=== PATIENT | male | born 1960 | race Caucasian/White ===

== ENCOUNTER → 2022-05-06 15:55 | Outpatient (BNVA) | payer MEDICAID, SELFPAY | PROVIDERS: Visit Provider Physician Assistant | DX: M47.816 Spondylosis without myelopathy or radiculopathy, lumbar region (principal) | CPT/HCPCS: 72110 ==

== ENCOUNTER 2022-05-14 09:05 | Outpatient (CLI) | payer MEDICAID, SELFPAY ==
--- NOTE | 2022-05-14 09:39 | CT_ITS ---
WS: [id number] LDCT LUNG CANCER SCREENING TECHNIQUE: Noncontrast CT of the chest with coronal and sagittal reformatted images. CLINICAL INFORMATION: NICOTINE DEPENDENCE,CIGARETTES COMPARISON: None. DLP: 89.77 mGy.cm DIvol: Mean CTDIvol: 1.60 (mGy) All CT scans at [facility] use at least one of these dose optimization techniques: automat ed exposure control; mA and/or kV adjustment per patient size (includes targeted exams where dose is matched to clinical indication); or iterative reconstruction. FINDINGS: Normal caliber thoracic aorta. Aortic calcification. Slightly ectatic ascending thoracic aorta measur ing 3.5 CM. Mild aortic calcification. Coronary calcification. No mediastinal or hilar lymphadenopath y. No axillary lymphadenopathy. Adrenal glands are normal. Splenic artery calcification. Gallbladder is contracted. Vague low-attenuation lesion in the dome of the liver. This can be further evaluated with contrast-enhanced CT abdomen pelvis liver phase protocol. This is indeterminate. Hypertrophic changes thoracic spine with endplate Schmorl's nodes. Well-circumscribed subpleural nodu le LEFT lower lobe measuring 8 mm. Recommend 6 month follow-up. Tiny subpleural opacity in the lingula. Noncalcified nodule in the RIGHT middle lobe measuring 5 mm. Noncalcified nodule RIGHT lower lobe along the fissure measuring 3 mm. Several additional tiny RIGHT lower lobe pulmonary and subpleural nodules. CT/CT lung screening [id number] IMPRESSION: Vague area of low-attenuation change in the RIGHT hepatic lobe near the liver dome measuring 3 cm. Recommend further evaluation with contrast-enha nced CT abdomen pelvis with liver protocol. LUNG-RADS: 3-Probably Benign FOLLOW UP: 6 Month LDCT
--- NOTE | 2022-05-14 09:40 | MR_ITS ---
WS: [id number] MRI LUMBAR SPINE NONCONTRAST TECHNIQUE: Sagittal T1, T2 and STIR imaging. Axial T1 and T2 imaging. CLINICAL INFORMATION: LUMBAR BACK PAIN W/RADICULOPATHY COMPARISON: None. FINDINGS: Mild lumbar curve. No acute compression. No high-grade central canal stenosis. Disc space narrowing w orse L5-S1. L1-L2: Moderate facet arthropathy. Spinal canal and foramen are patent. L2-L3: Shallow RIGHT pericentral protrusion. Moderate central canal stenosis. Impingement on the brianna ersing RIGHT greater than LEFT L3 nerve roots. Moderate facet arthropathy ligamentum flavum hypertrop hy. Mild RIGHT and no significant LEFT foraminal narrowing. L3-L4: Mild disc bulging and osteophytic ridging. Slight impingement traversing L4 nerve roots bilate rally. Mild central canal stenosis. Mild LEFT greater than RIGHT foraminal narrowing. L4-L5: Mild disc bulging with slight effacement of the ventral thecal sac. Moderate facet arthropathy . Mild LEFT and no significant RIGHT foraminal narrowing. Moderate facet arthropathy. L5-S1: Mild disc bulging with osteophytic ridging. Shallow central protrusion. Impingement traversing RIGHT S1 nerve root. Moderate facet arthropathy. Severe RIGHT and moderate LEFT bony foraminal narro wing. Moderate facet arthropathy. 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 Visualized pelvic bony structures: Normal. Paravertebral soft tissues: Normal. MR/MR lumbar spine wo con* [id number] IMPRESSION: 1. Mild lumbar curve. No acute compression. 2. Moderate central canal stenosis L2-L3 with impingement RIGHT subarticular r ecess and traversing RIGHT L3 nerve root. Mild RIGHT foraminal narrowing at thi s level with contact of the exiting RIGHT L2 nerve root. 3. Mild central canal stenosis L3-L4 with slight impingement traversing L4 ner ve roots bilaterally. Mild central canal stenosis. Small foraminal protrusions at this level with mild LEFT greater than RIGHT foraminal narrowing. 4. Narrowing of the subarticular recess bilaterally L4-L5 with mild annular bu lging. 5. Moderate to severe RIGHT and moderate LEFT L5-S1 foraminal narrowing. 6. Shallow RIGHT pericentral disc bulging L5-S1 impinges the traversing RIGHT S1 nerve root.
--- NOTE | 2022-05-14 10:22 | XR_ITS ---
WS: [id number] EXAMINATION: XR shoulder RT min 2V* [id number] REASON FOR EXAM: right shoulder pain COMPARISON: None available. ORDER DATE: 05/14/2022 10:23 AM TECHNIQUE: 3 views of the right shoulder were obtained. X-RAY FINDINGS: No fractures or dislocations. Normal motion of the shoulder with internal/external rotation. There is downsloping acromion on with a small distal acromial spur. Acromioclavicular joint demonstrates narrowing and mild degenerative change. Limited visualization of the adjacent hemithorax is unremarkable. XR/XR shoulder RT min 2V* [id number] IMPRESSION: Small distal acromial spur and mild AC joint changes of osteoarthritis.
== END 2022-05-14 09:06 | disposition home or self-care (01) ==
PROVIDERS: PCP Family Medicine; Visit Provider Family Medicine
DX: M19.011 Primary osteoarthritis, right shoulder (principal); M48.061 Spinal stenosis, lumbar region without neurogenic claudication; M51.27 Other intervertebral disc displacement, lumbosacral region; M48.07 Spinal stenosis, lumbosacral region; M51.26 Other intervertebral disc displacement, lumbar region
CPT/HCPCS: 71271; 72148; 73030

== ENCOUNTER 2022-05-21 16:10 | Emergency (ER) | payer MEDICAID, SELFPAY ==
[2022-05-21 16:36] VITALS: BP 166/85; PULSE 78; RESP 19; TEMP 37; O2SAT 97; BMI 25.7
--- NOTE | 2022-05-21 17:15 | W.ED.BACK ---
HPI - Back Pain/Injury General: Chief Complaint: Back Pain/Injury Stated Complaint: BACK PAIN Time Seen by Provider: 05/21/22 17:14 History of Present Illness: 62-year-old male patient comes in today for complaints of exacerbation of chronic low back pain. Patient has been seen at primary care and evaluated at pain speciality clinic to establish care. Patient is waiting to see with At the pain clinic for management plan. Patient has some bulging disks in the low back has been noted on MRI. Patient appears nontoxic. Patient reports chronic numbness in the lower extremities. Patient is also been seen in the ER for impingement syndrome of the right shoulder. Associated symptoms: Deny fever(s) Review of Systems Const: Denies: fever(s) Card: Denies: chest pain Resp: Denies: dyspnea Musc: Reports: back pain Neuro: Reports: numbness in extremities PFSH ED PFSH: Social History Smoking and tobacco status: current every day smoker Alcohol intake: never Physical Exam Const: COMMON NORMALS: alert HENMT: COMMON NORMALS: normocephalic HEAD & SCALP: normocephalic Neck/C-Spine: COMMON NORMALS: full ROM Resp: COMMON NORMALS: normal respiratory effort and clear to auscultation bilaterally AUSCULTATION: clear to auscultation bilaterally Cardio: COMMON NORMALS: regular rate and regular rhythm RATE: regular rate RHYTHM: regular rhythm Back/Pelvis: LUMBAR SPINE/LOWER BACK: Yes paraspinal muscle tenderness Lumbar paraspinal muscle tenderness: right Extremity: COMMON NORMALS: normal to inspection and no pedal edema Neuro: SENSORIUM/ORIENTATION: Yes alert Skin: COMMON NORMALS: turgor normal GENERAL SKIN EXAM: turgor normal Course Vital Signs: Vital signs: Vital Signs Temperature 98.6 F 05/21/22 16:36 Pulse Rate 78 05/21/22 16:36 Respiratory Rate 19 H 05/21/22 16:36 Blood Pressure 166/85 05/21/22 16:36 Pulse Oximetry 97 05/21/22 16:36 Oxygen Delivery Me thod 05/21/22 16:36 MDM - Back Pain/Injury Medical Decision Making 62-year-old male patient comes in today for complaints of low back pain. Patient reports that he has had no injury but has been working on remodeling a house. Patient states that he has been seen at the pain management clinic and started on medications but has run out of his medicine. Patient is to be followed up with on the with the physician for management plan. Patient appears nontoxic. Patient appears no acute distress. Differential diagnosis includes but not limited to intervertebral disc disease, facet arthritis, out of medication. Discussed with patient that the emergency department cannot manage chronic pain. 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 Patient reported understanding agreed to plan. Discharge Plan Discharge Patient Disposition: Home Clinical Impression: DDD (degenerative disc disease), lumbar Condition: Stable Prescriptions: New hydrocodone-acetaminophen 5-325 mg tablet 1 tab PO Q8H PRN (Reason: pain (scale score 7-10)) Qty: 10 0RF No Action atorvastatin 10 mg tablet 10 mg PO DAILY lisinopril 10 mg tablet 10 mg PO DAILY naproxen [EC-Naproxen] 500 mg tablet,delayed release (DR/EC) 500 mg PO BID tramadol 50 mg tablet 50 mg PO Q6H PRN varenicline 1 mg tablet 1 mg PO BID prednisone 20 mg tablet 20 mg PO DAILY Qty: 15 0RF Rx Instructions: 60mg x 3 days 40mg x 2 days 20mg x 2 days oxycodone-acetaminophen [Percocet] 5-325 mg tablet 1 tab PO Q4H PRN (Reason: pain) 7 Days Qty: 20 0RF Discharge Orders: Discharge ED (Routine); Ordered 05/21/22 Ordered By: Rafita Alcantara Referrals: Remberto Ford MD [Primary Care Provider] - Discharge Diet: Usual diet Discharge Activity: Increase activity as tolerated Patient Instructions: Opioid Safety, Pain Management Activity Restrictions/Additional Instructions: You should use Tylenol and ibuprofen to control pain. Gentle stretching and range of motion exercises. Ice and heat for further pain relief. Use hydrocodone for severe pain. Drink plenty of water with medication. Follow-up with primary care for refills on medication. Return to ER for new concerns. Coding Level of Care Code ED Manager Leadership Development for Will Lopez
== END 2022-05-21 17:41 | disposition home or self-care (01) ==
PROVIDERS: Emergency Provider Nurse Practitioner Family; PCP Family Medicine
DX: M51.36 Other intervertebral disc degeneration, lumbar region (principal); F17.210 Nicotine dependence, cigarettes, uncomplicated
CPT/HCPCS: 99283

== ENCOUNTER 2022-06-03 08:29 | Outpatient (CLI) | payer MEDICAID, SELFPAY ==
--- NOTE | 2022-06-03 08:47 | CT_ITS ---
WS: [id number] CT ABDOMEN AND PELVIS WITH CONTRAST HISTORY: LIVER MASS TECHNIQUE: Imaging performed of the abdomen and pelvis with IV contrast. Multi phase imaging of the abdomen. Coronal and sagittal reformats are submitted. All CT scans at [facility] use at leas t one of these dose optimization techniques: automated exposure control; mA and/or kV adjustment per patient size (includes targeted exams where dose is matched to clinical indication); or iterative rec onstruction. IV CONTRAST: Omnipaque 350; 100 mL IV. Oral contrast: No DLP: 1233.43 mGy.cm COMPARISON: Lung screening CT 05/14/2022 Lower thorax: Well-circumscribed subpleural 8mm nodule LEFT lung base. Heart is normal size. Small hi atal hernia. Liver/biliary system: Normal size liver. There are 2 low-attenuation masses in the liver. The largest measures 1.6 x 1.7 cm towards the RIGHT diaphragmatic surface of the liver. On the arterial phase th ere is slight peripheral pooling and puddling. This does not completely fill-in on the delayed imagin g. There is an additional small low-attenuation nodule in the LEFT lobe with a similar peripheral pud dling on the early arterial images measuring 1.3 maximum diameter. No additional abnormalities. Gallbladder: Normal. No gallstones or wall thickening. No pericholecystic fluid. Pancreas: Normal size pancreas and pancreatic duct. No adjacent inflammation. Spleen: Normal size spleen. No mass or infarct. Adrenal glands: Normal. Right kidney: Normal. Left kidney: Normal. Aorta: Mild atherosclerosis with no aneurysm. 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 Lymphadenopathy: None. Free fluid: None. GI tract: Minimally distended stomach. Normal contrast was given for this exam. No small bowel obstru ction. Normal appendix. Moderate diverticular disease in the distal colon with no acute diverticuliti s. Abdominal wall: Fat containing umbilical hernia. Pelvis: No free fluid or adenopathy within the pelvis. Mild prostate enlargement. Bones: LEFT SI joint sclerosis. Degenerative disc disease at L5-S1. CT/CT abdomen pelvis w con* [id number] IMPRESSION: 1. Hepatic low-attenuation masses as described above x2. Although not typical these are most likely benign hemangiomas. Additional evaluation is recommended. Recommend multiphase abdomen CT follow-up in 3 months or follow-up MRI with an d without contrast of the liver. 2. 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 3. Subpleural LEFT lower lobe 8 mm pulmonary nodule. Refer to lung screening r eport of 05/14/2022. 4. Diverticulosis without acute diverticulitis.
[2022-06-03] MEDS: iohexol 350 mg/mL 500 mL Btl (per mL) IV (08:49)
== END 2022-06-03 08:30 | disposition home or self-care (01) ==
LOC: RAD 08:35
PROVIDERS: PCP Family Medicine; Visit Provider Family Medicine
DX: K76.89 Other specified diseases of liver (principal); R91.1 Solitary pulmonary nodule; K57.30 Diverticulosis of large intestine without perforation or abscess without bleeding; I72.2 Aneurysm of renal artery
CPT/HCPCS: 74177; Q9967

== ENCOUNTER 2022-06-11 18:17 | Emergency (ER) | payer OTHER, MEDICAID, SELFPAY ==
[2022-06-11 18:21] VITALS: BP 199/99; PULSE 78; RESP 14; TEMP 36.6; O2SAT 98
--- NOTE | 2022-06-11 19:12 | W.ED.BACK ---
HPI - Back Pain/Injury General: Chief Complaint: Back Pain/Injury Stated Complaint: pain, back/ shoulder injury Time Seen by Provider: 06/11/22 18:28 Source: patient Mode of arrival: ambulatory Limitations: no limitations History of Present Illness: Patient presents to the emergency department today for evaluation treatment of continued low back and right shoulder pain. Patient's chart review indicates a known history of degenerative disc disease and right shoulder impingement for which he has had appointments with orthopedics. Most recently, patient had a discussion with orthopedics regarding an MRI of his back and they discussed surgical options or pain management. Patient indicated he wanted to go to pain management. Patient has an appointment with pain management in 5 days but, indicates his primary care doctor as well as orthopedic physician, only gave him a short course of pain medication during this time. Patient reports he is currently out of his pain medication and, indicates that he does not think it is particularly strong enough. Incidentally, patient reports he is remodeling his home. He states he has been using a patch sander above his head for the last 2 days and, notes significant worsening of pain in his right shoulder. He denies any acute injuries or falls. Review of Systems General: Reports: 10 or more systems reviewed and unremarkable except in HPI and below PFSH ED PFSH: Social History Smoking and tobacco status: current every day smoker Alcohol intake: never Substance/Drug Use: never Physical Exam Const: COMMON NORMALS: no acute distress, patient oriented x3 and alert HENMT: COMMON NORMALS: normocephalic, atraumatic and hearing grossly normal bilaterally HEAD & SCALP: normocephalic and atraumatic Eye: COMMON NORMALS: Equal, round and reactive pupils present, EOMs intact bilaterally and conjunctivae normal CONJUNCTIVA: Yes conjunctivae normal PUPIL: Yes Equal, round and reactive pupils present Neck/C-Spine: COMMON NORMALS: full ROM and no JVD Lymph: LYMPHATIC: no lymphadenopathy noted Resp: COMMON NORMALS: normal respiratory effort, No retractions and No use of accessory muscles Cardio: COMMON NORMALS: no JVD and regular rate RATE: regular rate Extremity: NARRATIVE EXTREMITY EXAM: Patient is ambulatory and weightbearing here in the emergency department. He appears uncomfortable with standing and sitting and has some altered gait but, is still able to bear weight and ambulate independently. Neuro: COMMON NORMALS: patient oriented x3 SENSORIUM/ORIENTATION: Yes alert Psych: COMMON NORMALS: mental status grossly normal, Normal thought process present, cooperative and normal affect THOUGHT PROCESS: Normal thought process present Skin: COMMON NORMALS: no rashes or lesions noted and turgor normal GENERAL SKIN EXAM: no rashes or lesions noted and turgor normal Course Vital Signs: Vital signs: Vital Signs Temperature 97.9 F 06/11/22 18:21 Pulse Rate 78 06/11/22 18:21 Respiratory Rate 14 06/11/22 18:21 Blood Pressure 199/99 06/11/22 18:21 Pulse Oximetry 98 06/11/22 18:21 Oxygen Delivery Me thod Room Air 06/11/22 18:21 MDM - Back Pain/Injury Medical Decision Making Patient presents to the emergency department for complaints of chronic pain to his back and right shoulder. Patient has been seen and evaluated by orthopedics and has had imaging of his back. He has been prescribed narcotic pain medication in the past but in short courses. He is scheduled to see pain management on Tuesday but, presents today as he is out of his pain medication. Explained to him that the emergency department is very limited on treatment of chronic pain. He is also driving himself to and from the emergency department today. I did speak with Dr. Maddox regarding the patient's previous evaluations and upcoming appointment with pain management. He was willing to give a very short course of medication to be taken through the weekend but, needs to call his doctor on Tuesday for any further extension on his pain medication. Patient was treated here with steroids and Toradol with a prescription for muscle relaxer and Medrol Dosepak at home for his acute worsening of pain as well. Differential Diagnosis Likely lumbar radiculopathy, sciatica and strain of lumbar region Discharge Plan Discharge Patient Disposition: Home Clinical Impression: Impingement of right shoulder, DDD (degenerative disc disease), lumbar, Facet arthritis, degenerative, lumbar spine Condition: Stable Prescriptions: New Medrol (Denis) 4 mg tablets,dose pack See Rx Instructions .ROUTE .COMPLEX Qty: 21 0RF Rx Instructions: orally per package directions tizanidine 4 mg capsule 4 mg PO Q8H PRN (Reason: back pain) Qty: 20 0RF No Action atorvastatin 10 mg tablet 10 mg PO DAILY lisinopril 10 mg tablet 10 mg PO DAILY naproxen [EC-Naproxen] 500 mg tablet,delayed release (DR/EC) 500 mg PO BID tramadol 50 mg tablet 50 mg PO Q6H PRN varenicline 1 mg tablet 1 mg PO BID prednisone 20 mg tablet 20 mg PO DAILY Qty: 15 0RF Rx Instructions: 60mg x 3 days 40mg x 2 days 20mg x 2 days oxycodone-acetaminophen [Percocet] 5-325 mg tablet 1 tab PO Q4H PRN (Reason: pain) 7 Days Qty: 20 0RF hydrocodone-acetaminophen 5-325 mg tablet 1 tab PO Q8H PRN (Reason: pain) 7 Days Qty: 20 0RF hydrocodone-acetaminophen 5-325 mg tablet 1 tab PO Q8H PRN (Reason: pain (scale score 7-10)) Qty: 10 0RF Discharge Orders: Discharge ED (Routine); Ordered 06/11/22 Ordered By: Madhavi Orantes Referrals: Remberto Ford MD [Primary Care Provider] - Discharge Diet: Usual diet Discharge Activity: Increase activity as tolerated Patient Instructions: Opioid Safety, Pain Management Activity Restrictions/Additional Instructions: The emergency room physician here this evening is unfortunately limited to the amount and type of narcotic pain medication treatment they can prescribe as this is an acute setting and they are not able to follow long-term medications or chronic pain. He has agreed to the same type of medication you have previously been prescribed through the weekend for you to call your regular doctor on Tuesday to discuss options for continued medication through Tuesday. I have also sent in a prescription for a Medrol Dosepak and muscle relaxer to help with your pain. Be careful while taking muscle relaxer and narcotic pain medication together as it does enhance sedation which could lead to dizziness. Do not operate machinery or drive if taking these medications. Do not drink alcohol while taking these medications. You can still use NSAIDs and Tylenol. Keep your upcoming appointment with pain management for more definitive treatment of your pain. Coding Level of Care Code ED [employer] for Will Lopez
== END 2022-06-11 19:25 | disposition home or self-care (01) ==
PROVIDERS: Emergency Provider Physician Assistant; PCP Family Medicine
DX: M75.41 Impingement syndrome of right shoulder (principal); M51.36 Other intervertebral disc degeneration, lumbar region; M47.896 Other spondylosis, lumbar region; F17.210 Nicotine dependence, cigarettes, uncomplicated
CPT/HCPCS: 99284

== ENCOUNTER 2022-06-19 08:53 | Outpatient (CLI) | payer MEDICAID, SELFPAY ==
--- NOTE | 2022-06-19 | MR_ITS ---
WS: [id number] MRI RIGHT SHOULDER HISTORY: ROTATOR CUFF IMPINGEMENT SYNDROME COMPARISON: Radiograph 05/14/2022 TECHNIQUE: Multiplanar sequences of the shoulder joint are submitted. 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 Hypertrophic bone formation with heterogeneous signal and th ickening of the capsule. Osteophyte encroachment upon the supraspinatus myotendinous insertion. No si gnificant subacromial fluid distention. There is an additional osteophyte from the undersurface of th e acromion with mild subacromial impingement. Small subdeltoid bursal distention. No os acromion. Nor mal position of the biceps tendon. Thin oblique tear extends through the majority of the distal supraspinatus tendon. This is a small te ar extending only approximately 2 mm in width. No retraction. There is an additional insertion site t ear of the supraspinatus closely associated with the interdigitation between the subscapularis tendon . There is also associated subchondral cystic changes. Additional supraspinatus tendinopathy over the superior humeral head at the site of the subacromial impingement. No muscle atrophy or edema. No add itional tendon tears. Subchondral cystic changes with loss of cartilage in the inferior glenoid. There is an associated lab ral tear which extends posterior and inferior. MR/MR shoulder RT wo con* [id number] IMPRESSION: 1. Moderate to severe AC joint arthritis with osteophyte encroachment upon the myotendinous supraspinatus. 2. Mild subacromial impingement. 3. Insertion site tear distal supraspinatus tendon. There is an additional mor e proximal areas small oblique tear through the tendon. No retraction of the te ndon. 4. Mild supraspinatus tendinopathy over the superior humeral head at the site of subacromial impingement. 5. The posterior inferior labrum is abnormal. Along with the labral tears ther e is associated loss of cartilage with cystic changes along the inferior glenoi d.
== END 2022-06-19 08:54 | disposition home or self-care (01) ==
LOC: RAD 08:56
PROVIDERS: PCP Family Medicine; Visit Provider Family Medicine
DX: M75.101 Unspecified rotator cuff tear or rupture of right shoulder, not specified as traumatic (principal)
CPT/HCPCS: 73221

== ENCOUNTER 2022-08-16 07:48 | Outpatient (CLI) | payer MEDICAID, SELFPAY ==
--- NOTE | 2022-08-16 07:57 | CT_ITS ---
WS: [id number] CT ABDOMEN WITH AND WITHOUT CONTRAST HISTORY: LIVER MASS Contiguous single phase 3mm axial imaging performed to the abdomen. Oral contrast has been provided. Coronal and sagittal reformats are submitted. All CT scans at [facility] use at least one of these dose optimization techniques: automated exposure control; mA and/or kV adjustment per patient s ize (includes targeted exams where dose is matched to clinical indication); or iterative reconstructi on. IV CONTRAST: Omnipaque 350; 100 mL IV. Oral contrast: No DLP: 1429.92 mGy.cm COMPARISON: 06/03/2022 Lower thorax: Stable noncalcified subpleural nodule LEFT lung base measures 8 mm. Normal size heart. Small hiatal hernia. Liver/biliary system: Again noted are 2 low-attenuation masses within the liver. The largest measures 16 x 12 mm in the anterior liver just to the RIGHT of the middle hepatic vein. Hounsfield units are approximately 50 on all 3 images. This does not follow blood pool enhancement. There is limited addit ional smaller low-attenuation mass in the lateral segment LEFT lobe of the liver measuring 10 x 7 mm. This does not completely fill-in on the delayed imaging and there is no peripheral pooling of contra st. Gallbladder: Normal. No gallstones or wall thickening. No pericholecystic fluid. Pancreas: Normal size pancreas and pancreatic duct. No adjacent inflammation. Spleen: Normal size spleen. No mass or infarct. Adrenal glands: Normal. Right kidney: Normal size kidney. Partially calcified RIGHT renal artery aneurysm measures 12 mm in d iameter. Similar to the prior study. Left kidney: Normal. Aorta: Mild atherosclerosis with no aneurysm. Lymphadenopathy: None. Free fluid: None. GI tract: As visualized no obstruction. No small bowel obstruction. There are a few scattered diverti cula noted in the descending colon just distal to the splenic flexure. Abdominal wall: Fat containing umbilical hernia. Visualized osseous structures: Unremarkable. CT/CT abdomen wo/w con [id number] IMPRESSION: 1. No increase in size of the hepatic low-attenuation masses since 06/03/2022. These masses do not significantly enhance and do not demonstrate typical enhanc ement features of hemangiomas. Also these are not simple cysts. Continued seria l imaging evaluation is recommended. Additional etiologies to help characterize further consist of MRI liver with and without contrast or ultrasound. At the inimum follow-up CT abdomen with contrast in 3 months. 2. Stable LEFT renal artery aneurysm. 3. Mild atherosclerosis aorta. 4. Stable subpleural 8 mm LEFT lower lobe nodule. Nodule can also be reevaluat ed in 3 months on the follow-up CT abdomen.
[2022-08-16 08:49] LABS: Blood Urea Nitrogen 16 mg/dL (8-23); Glomerular Filtration Rate 68.1 mL/min (90-130)
[2022-08-16] MEDS: iohexol 350 mg/mL 500 mL Btl (per mL) IV (08:59)
== END 2022-08-16 07:49 | disposition home or self-care (01) ==
LOC: RAD 07:51
PROVIDERS: Radiology Neuroradiology; PCP Family Medicine; Visit Provider Family Medicine
DX: R16.0 Hepatomegaly, not elsewhere classified (principal); I72.2 Aneurysm of renal artery; I70.8 Atherosclerosis of other arteries; R91.1 Solitary pulmonary nodule
CPT/HCPCS: 74170; 82565; 84520; Q9967

== ENCOUNTER 2022-11-01 14:20 | Outpatient (CLI) | payer MEDICAID, SELFPAY ==
--- NOTE | 2022-11-01 14:27 | CT_ITS ---
WS: [id number] CT chest wo con [id number] HISTORY: MULTIPLE NODULES OF LUNG TECHNIQUE: Axial imaging performed through the thorax. Coronal and sagittal reformats are submitted. All CT scans at [facility] use at least one of these dose optimization techniques: automated exposure control; mA and/or kV adjustment per patient size (includes targeted exams where dose is mat ched to clinical indication); or iterative reconstruction. CONTRAST: None DLP: 465.90 mGy.cm COMPARISON: 05/14/2022 Lungs and central airway: No increase in size of the subpleural 8 mm nodule in the LEFT lower lobe. N o new mass, pneumonia or nodule. Very minimal pulmonary hyperexpansion. No endobronchial lesions. Pleura: Normal. No pleural effusion. Heart and pericardium: Normal size heart with no pericardial effusion. Mediastinum and honorio: No mediastinum or hilar adenopathy. Vessels: Mild atherosclerosis aorta. No aneurysm. Normal sized pulmonary artery. Chest wall and lower neck: No soft tissue masses. Upper abdomen: Small hiatal hernia. Reidentified is the low-attenuation nodule in the LEFT lobe of th e liver measuring 2.0 cm. This was also described on the study of 05/14/2022. Additional liver CT has been performed today. No adrenal mass. Negative gallbladder. 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 This will be better characterized on the postcontrast imaging study performed the same day. Osseous structures: Numerous sclerotic changes throughout the thoracic vertebral bodies are stable. IMPRESSION: 1. Stable pleural-based 8 mm nodule in the LEFT lower lobe. Recommend additional 12-month chest CT fo llow-up. 2. No mediastinal or hilar adenopathy. 3. Reidentified low-attenuation mass in the LEFT lobe of the liver. Please see abdomen CT report from the same day.
--- NOTE | 2022-11-01 14:33 | CT_ITS ---
WS: [id number] CT ABDOMEN WITH CONTRAST HISTORY: Follow-up liver mass. Triple phase CT abdomen. Oral contrast has not been provided. Coronal and sagittal reformats are subm itted. All CT scans at [facility] use at least one of these dose optimization techniques: aut omated exposure control; mA and/or kV adjustment per patient size (includes targeted exams where dose is matched to clinical indication); or iterative reconstruction. IV CONTRAST: Omnipaque 350; 100 mL IV. Oral contrast: No DLP: 1610.51 mGy.cm COMPARISON: 08/16/2022 and 06/03/2022 Lower thorax: Lung bases are clear. Heart is normal size. Small hiatal hernia. Liver/biliary system: Normal size liver. Reidentified are low-attenuation nodules which have not sign ificantly increased in size. The larger low-attenuation nodule is in the superior liver towards the d iaphragmatic surface measuring 16 x 14 mm. Not significantly increased in size since 06/03/2022. Small er slightly lobulated nodule in the far lateral LEFT hepatic segment measures 1.5 cm maximum diameter . 14 x 6 mm. Gallbladder: Normal. No gallstones or wall thickening. No pericholecystic fluid. Pancreas: Normal size pancreas and pancreatic duct. No adjacent inflammation. Spleen: Normal size spleen. No mass or infarct. Adrenal glands: Normal. Right kidney: Normal kidney. RIGHT renal artery aneurysm is reidentified measuring 17 x 14 mm. Left kidney: Normal. Aorta: Moderate atherosclerosis with no aneurysm. Lymphadenopathy: None. Free fluid: None. GI tract: As visualized negative. Abdominal wall: Small umbilical hernia. Visualized osseous structures: Unremarkable. IMPRESSION: 1. No significant increase in size of the low-attenuation hepatic masses which have been previously described since 06/03/2022. These are not typical for hemangiomas. These will need to be further evalu ated by surveillance imaging. Consider reevaluation in 3 to 4 months with three-phase CT follow-up. A lternatively MRI of the liver with and without contrast would also provide additional information. 2. Stable RIGHT renal artery aneurysm.
[2022-11-01 15:07] LABS: Blood Urea Nitrogen 12 mg/dL (8-23)
[2022-11-01] MEDS: iohexol 350 mg/mL 500 mL Btl (per mL) IV (15:16)
== END 2022-11-01 14:21 | disposition home or self-care (01) ==
LOC: RAD 14:21
PROVIDERS: Radiology Diagnostic Radiology; PCP Family Medicine; Visit Provider Family Medicine
DX: K76.89 Other specified diseases of liver (principal); R91.8 Other nonspecific abnormal finding of lung field; I72.2 Aneurysm of renal artery
CPT/HCPCS: 71250; 74170; 82565; 84520; Q9967

== ENCOUNTER 2023-03-29 14:54 | Outpatient (CLI) | payer MEDICAID, SELFPAY ==
--- NOTE | 2023-03-29 15:00 | MR_ITS ---
WS: [id number] MRI RIGHT SHOULDER HISTORY: ROTATOR CUFF DEFICIT/R SHOULDER PAIN COMPARISON: 06/19/2022 TECHNIQUE: Multiplanar sequences of the shoulder joint are submitted. 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 Hypertrophic bone formation encroaching upon the myotendinou s portion of the supraspinatus. Mild thickening of the capsule. Increased T2 signal through the AC li gament. Subacromial and subdeltoid bursal fluid is increasing since the prior study. Moderate subacro mial impingement. No os acromion. Normal biceps tendon. No muscle atrophy or edema. Reidentified is the oblique tear involving the articular surface of the d istal supraspinatus with additional mild tendinopathy. There is an insertion site tear also. No retra ction of the tendon. There is increased fluid signal contiguous from the subacromial bursa surroundin g the supraspinatus tendon. Partial tear along the bursal surface of the tendon. This tear appears ne w along with the subacromial bursal fluid collection. There is a small fluid collection in the subscapularis recess. There is a small tract from this colle ction extending along the superior anterior labrum. I suspect this is probably a paralabral cyst from a tear. Reidentified is the tear involving the posterior labrum. IMPRESSION: 1. Moderate to severe AC joint arthritis. No change since 06/19/2022. 2. Increasing subacromial subdeltoid bursal fluid. 3. Tendinopathy in the distal supraspinatus tendon. 4. Distal, high-grade insertion site tear of the supraspinatus. No change. 5. Additional articular surface tear of the distal supraspinatus tendon is unchanged. 6. New increased signal extending to the bursal surface of the supraspinatus tendon at the site of t he AC joint encroachment. This is also the site of increasing bursal fluid. 7. Paralabral cyst involving the torn superior anterior labrum. There is an additional tear which is unchanged in the posterior labrum. 8. No muscle atrophy or edema.
== END 2023-03-29 14:55 | disposition home or self-care (01) ==
LOC: RAD 14:55
PROVIDERS: PCP Family Medicine; Visit Provider Family Medicine
DX: M75.101 Unspecified rotator cuff tear or rupture of right shoulder, not specified as traumatic (principal); S43.431A Superior glenoid labrum lesion of right shoulder, initial encounter; M25.411 Effusion, right shoulder; M25.511 Pain in right shoulder; X58.XXXA Exposure to other specified factors, initial encounter; Y93.9 Activity, unspecified; Y92.9 Unspecified place or not applicable; Y99.9 Unspecified external cause status
CPT/HCPCS: 73221

== ENCOUNTER 2023-03-29 14:54 | Outpatient (CLI) | payer MEDICAID, SELFPAY ==
--- NOTE | 2023-03-29 15:07 | CTR_ITS ---
PROCEDURE INFORMATION: Exam: CT Abdomen And Pelvis Without And With Contrast Exam date and time: 03/29/2023 3:29 PM Age: 62 years old Clinical indication: Condition or disease; Liver condition; Hepatomegaly or mass; Additional info: Liver mass TECHNIQUE: Imaging protocol: Computed tomography of the abdomen and pelvis without and with contrast. Radiation optimization: All CT scans at this facility use at least one of these dose optimization techniques: automated exposure control; mA and/or kV adjustment per patient size (includes targeted exams where dose is matched to clinical indication); or iterative reconstruction. Contrast material: OMNI 350; Contrast volume: 95 ml; Contrast route: INTRAVENOUS (IV); COMPARISON: CT abdomen wo/w con [id number] 11/01/2022 3:12 PM RADIATION DOSE METRICS: Total DLP (mGy-cm): 1607.83 FINDINGS: Lungs: Stable 8 mm left lower lobe nodule. Liver: Unchanged hypoattenuating hepatic lesions, the largest measuring up to 1.4 x 1.6 cm in the anterior right hepatic lobe (series 5, image 22), with additional 0.9 x 1.3 cm lesion in the left hepatic lobe (image 31). Gallbladder and bile ducts: No calcified stones. No ductal dilation. Pancreas: No ductal dilation. Spleen: Unremarkable. Adrenal glands: Unremarkable. Kidneys and ureters: No hydronephrosis. Stomach and bowel: Unremarkable. No obstruction. No mucosal thickening. Appendix: No evidence of appendicitis. Intraperitoneal space: Unremarkable. No free air. No significant fluid collection. Vasculature: Stable partially calcified right renal artery aneurysm measuring 1.7 x 1.4 cm. Lymph nodes: Unremarkable. No enlarged lymph nodes. Urinary bladder: Unremarkable as visualized. Reproductive: Unremarkable as visualized. Bones/joints: Multilevel degenerative changes of the thoracolumbar spine. Soft tissues: Unremarkable. CT/CT abdomen wo/w con [id number] IMPRESSION: 1. Stable size of indeterminate hypoattenuating hepatic lesions. These may be definitively characterized by MRI if clinically indicated. 2. Stable 8 mm left lower lobe nodule. Recommend CT Chest in 12-18 months to demonstrate 2 years of stability. (Reference: Danny) REFERENCES: Danny Davies, et al. Guidelines for Management of Incidental Pulmonary Nodules Detected on CT Images: From the Fleischner Society 2017. Radiology. 2017;284(1):228-243.
[2023-03-29 15:28] LABS: Blood Urea Nitrogen 8 mg/dL (8-23); Glomerular Filtration Rate 68.1 mL/min (90-130)
[2023-03-29] MEDS: iohexol 350 mg/mL 500 mL Btl (per mL) IV (15:33)
== END 2023-03-29 14:55 | disposition home or self-care (01) ==
LOC: RAD 14:55
PROVIDERS: Radiology Diagnostic Radiology; PCP Family Medicine; Visit Provider Family Medicine
DX: K76.89 Other specified diseases of liver (principal)
CPT/HCPCS: 74170; 82565; 84520; Q9967

== ENCOUNTER → 2023-06-23 12:57 | Outpatient (BNVA) | payer MEDICAID, SELFPAY | PROVIDERS: PCP Family Medicine; Visit Provider Student in an Organized Health Care Education/Training Program | DX: M25.811 Other specified joint disorders, right shoulder (principal); M75.101 Unspecified rotator cuff tear or rupture of right shoulder, not specified as traumatic; S43.439A Superior glenoid labrum lesion of unspecified shoulder, initial encounter; M19.019 Primary osteoarthritis, unspecified shoulder | CPT/HCPCS: 73030 ==

== ENCOUNTER 2023-09-28 08:00 | Day surgery (SDC) | payer MEDICAID, SELFPAY ==
[2023-09-28] VITALS (13 sets, daily range): BP systolic 147–170; BP diastolic 88–103; PULSE 51–75; RESP 16–20; TEMP 36.1–36.3; O2SAT 96–99; BMI 26.3
[2023-09-28] MEDS: sodium chloride 0.9% 1,000 ML 30 ML IV (08:31)
[2023-09-28] MEDS: acetaminophen 1,000 MG/100 ML PIGGYBACK 400 MG IV (08:32)
[2023-09-28] MEDS: ketorolac 30 mg/mL INJ IVP (08:32)
[2023-09-28] MEDS: scopolamine 1.5 Patch 1 PATCH TRANSDERMA (08:33)
--- NOTE | 2023-09-28 08:52 | P.ANESASSM_ITS ---
Pre-Anesthetic Assessment Height/Weight: Height 1.88 m Weight 92.986 kg Temp Pulse Resp BP Pulse Ox O2 Del Method 97.2 F L 75 18 147/88 99 Room Air 09/28/23 08:18 09/28/23 08:18 09/28/23 08:18 09/28/23 08:33 09/28/23 08:18 09/28/23 08:18 Operation Date: 09/28/23 09:30 Proposed Procedures p Shoulder Arthroscopy and diagnostic(Right) - Victor Manuel [place], DO s Subacromial Decompression(Right) - Victor Manuel [place], DO s AC Joint Resection(Right) - Victor Manuel [place], DO s rotator cuff debridement versus repair(Right) - Victor Manuel [place], DO s Possible Bicep Tenodesis(Right) - Victor Manuel [place], DO Familial anesthetic complications: no Was Beta Sissy taken within 24 hours: N/A Was Clonidine taken within 24 hours: N/A Last intake: Intake Last Liquid Date 09/27/23 Last Liquid Time 22:00 Last Solid Date 09/27/23 Last Solid Time 22:00 Social Tobacco and No alcohol 1PPD pack(s) per day Exam alert, oriented x 3, clear to auscultation bilaterally and regular rate & rhythm Airway Submandibular: within normal limits Cervical ROM: within normal limits Mallampati: Class II Dentition: full Comments: Comments: missing one tooth on upper left History/ROS No significant history except as noted and No significant complaints Pulmonary None reported CV/HEM None reported None reported Hepatic None reported GI None reported Metabolic None reported Musc/skel Pain: states severe shoulder pain for a year. Uses Outing daily. Neuropsych None reported Anesthetic Plan ASA status: 2 Anesthesia: General and Regional (specify below) Other: Interscalene Block pre-op for post-op pain. Risk of > 500 ml blood loss (7ml/kg in children): No Medications/Allergies Home Medications Medication Instructions Recorded Confirmed Last Taken Type lisinopril 10 mg tablet 10 mg PO DAILY 05/06/22 09/27/23 09/26/23 History naproxen 500 mg tablet,delayed 500 mg PO BID 05/06/22 09/27/23 Unknown History release (EC-Naproxen) hydrocodone 5 mg-acetaminophen 325 1 tab PO Q8H PRN pain 7 days #20 05/25/22 09/27/2309/26/24 Rx mg tablet tabs tizanidine 4 mg capsule 4 mg PO Q8H PRN back pain #20 caps 06/11/22 09/27/23 Unknown Rx gabapentin 300 mg capsule 300 mg PO DAILY 06/23/23 09/27/23 09/06/23 History Allergies Allergy/AdvReac Type Severity Reaction Status Date / Time No Known Allergies Allergy Verified 06/23/23 13:00 Current Medications Generic Name Dose Route Start Last Admin Trade Name Freq PRN Reason Stop Dose Admin Sodium Chloride 1,000 mls @ 30 mls/hr 09/28/23 08:15 09/28/23 08:31 Sodium Chloride 0.9% IV 09/29/23 08:14 30 mls/hr .Q24H KATELYN Administration PFSH Anesthesia Social History Smoking and tobacco/nicotine status: current every day tobacco/nicotine user Alcohol intake: never Substance/Drug Use: never Data Anesthesia Cardiac Studies: No Data to Display
--- NOTE | 2023-09-28 09:11 | W.PM.OPSFHP ---
Same Day Surgery H&P Indication for Procedure/HPI DATE OF PROCEDURE: September 28, 2023 CHIEF COMPLAINT/INDICATIONFOR SURGICAL PROCEDURE: Right shoulder AC joint arthritis, subacromial impingement, supraspinatus rotator cuff tendon tear, superior labral tear with biceps tendinitis PREOP DIAGNOSIS: Right shoulder AC joint arthritis, subacromial impingement, supraspinatus r PLANNED PROCEDURE: Operation Date: 09/28/23 09:30 Proposed Procedures p Shoulder Arthroscopy and diagnostic(Right) - Victor Manuel [place] DO s Subacromial Decompression(Right) - Victor Manuel [place] DO s AC Joint Resection(Right) - Victor Manuel [place] DO s rotator cuff debridement versus repair(Right) - Victor Manuel [place] DO s Possible Bicep Tenodesis(Right) - Victor Manuel [place] DO Medications/Allergies* Home Medications Medication Instructions Recorded Confirmed Type lisinopril 10 mg tablet 10 mg PO DAILY 05/06/22 09/27/23 History naproxen 500 mg tablet,delayed 500 mg PO BID 05/06/22 09/27/23 History release (EC-Naproxen) gabapentin 300 mg capsule 300 mg PO DAILY 06/23/23 09/27/23 History Allergies/Adverse Reactions Allergy/AdvReac Type Severity Reaction Status Date / Time No Known Allergies Allergy Verified 06/23/23 13:00 Current Medications: Generic Name Dose Route Start Last Admin Trade Name Freq PRN Reason Stop Dose Admin Sodium Chloride 1,000 mls @ 30 mls/hr 09/28/23 08:15 09/28/23 08:31 Sodium Chloride 0.9% IV 09/29/23 08:14 30 mls/hr .Q24H KATELYN Administration Pertinent History/Comorbid Conditions* Social History Smoking and tobacco/nicotine status: current every day tobacco/nicotine user Alcohol intake: never Substance/Drug Use: never Pertinent Exam Findings alert, oriented x 3, operative site marked and procedure specific exam findings Please refer to detailed orthopedic examination on 06/23/2023 Shoulder exam: Right C-Spine ROM: Range of motion with no pain Spurlings: Negative ROM: Passive 180 pain on ends ROM Active 160 TTP tenderness to palpation over the anterior lateral aspects of the shoulder as well as over the AC joint Internal Rotation 5 out of 5 with elbows at the side External Rotation 5 out of 5 with elbows at the side O'Briens: Positive Jobes: 4/5 with pain Irvin Impingement:Positive Speeds Test: Positive Crossover/Neers test:Positive Recommendations Surgery/Procedure today Other Plans: Plan to proceed to the OR right shoulder diagnostic and surgical arthroscopy with subacromial decompression AC joint resection, rotator cuff debridement versus repair, possible biceps tenodesis. Patient understands the ins and outs of procedure the risk benefits complication alternatives to surgery and through shared decision-making legs proceed with surgical intervention all questions have been answered at this time. Coding Level of Care Code Acute Code for Will Lopez
--- NOTE | 2023-09-28 09:32 | ANES.PROC ---
Anesthesia Procedures Procedure/Date: 09/28/23 Right Interscalene Block Procedure Narrative: For Post-Op pain. Nerve Block ^: Nerve Block 1: Main Anesthesia: general anesthesia Time Out Performed: Yes Consent: requested by attending/covering physician, from patient, risks and benefits reviewed and patient agrees to proceed Nerve block location: interscalene Anesthesia monitors applied: pulse oximetry, EKG, BP cuff and oxygen Nerve block position: semi sitting Anesthetic Used: ropivicaine 0.5% and with decadron Amount of anesthesia used (mL): 20 Ultrasound used to: recognize landmarks, visualize and ID brachial plexus and visualize and ID interscalene groove Nerve Stimulator Used?: No Interscalene/Femoral BLK: 4 stimuplex 21 g needle used for position and inplane approach, visualize local anesthetic spread and no vascular puncture identified Injection: neg aspiration of heme Patient Tolerated Procedure: well and no complications Complications: none Additional Comments: none Other Information: Versed 2mg IV given before procedure for adequete sedation.
[2023-09-28] MEDS: ceFAZolin 2,000 MG in sodium chloride 0.9% (plus) 50 ML 100 MG IV (09:46)
[2023-09-28] MEDS: EPINEPHrine 1 mg/mL INJ 2 MG XX (10:39)
--- NOTE | 2023-09-28 11:45 | P.OP_ITS ---
Operative Report Date of procedure: September 28, 2023 Surgeon: Victor Manuel Spaulding DO Software Engineer Sales: Balta Spaulding PA-C: PA was necessary for assistance in this case with shoulder positioning to execute the procedure, assistance with instrumentation, as well as implant fixation when necessary, assist with wound closure and dressing application. Procedure: Preoperative diagnosis: Right shoulder AC joint arthritis, subacromial impingement, supraspinatus rotator cuff tendon tear, superior labral tear with biceps tendinitis Post-op diagnosis: Right shoulder labral and rotator cuff tear seen, AC joint arthritis and subacromial bursa seen. Biceps tendon tear Procedure done: Right?shoulder?diagnostic and surgical arthroscopy with arthroscopic rotator cuff repair (medium) Right?shoulder?diagnostic and surgical arthroscopy biceps tenodesis Right?shoulder?diagnostic and surgical arthroscopy labral debridement Right?shoulder?diagnostic and surgical arthroscopy acromioclavicular joint resection Right?shoulder?diagnostic and surgical arthroscopy subacromial decompression (acromioplasty and bursectomy) Surgeon: Victor Manuel Spaulding DO Estimated blood loss: 10mL IV fluids: See anesthesia record Implants: Arthrex 4.75 loop and tack biceps tenodesis system Arthrex 4.75 swivel locks x 2 with suture tape and FiberWire Complications: None Condition: stable Disposition: same day Brief History: Patient been seen and worked up in the outpatient setting for?right?shoulder?pain.? Pt had an MRI which showed findings below.? Patient's failed conservative treatment and has weakness.? We talked about treatment options far as nonoperative and operative intervention..? We talked about risk benefits complication alternatives surgical nonsurgical treatment options.? Understanding risk of surgery he agrees to proceed with surgical intervention.? All questions have been answered at this time.? Patient elects proceed with surgery and consent obtained in office. IMPRESSION: 1. Moderate to severe AC joint arthritis. No change since 06/19/2022. 2. Increasing subacromial subdeltoid bursal fluid. 3. Tendinopathy in the distal supraspinatus tendon. 4. Distal, high-grade insertion site tear of the supraspinatus. No change. 5. Additional articular surface tear of the distal supraspinatus tendon is unchanged. 6. New increased signal extending to the bursal surface of the supraspinatus tendon at the site of the AC joint encroachment. This is also the site of increasing bursal fluid. 7. Paralabral cyst involving the torn superior anterior labrum. There is an additional tear which is unchanged in the posterior labrum. 8. No muscle atrophy or edema. Procedure: Patient seen evaluated in the preoperative holding area.? Consent reviewed and signed with patient.? Once again reviewed patient's MRI results as well as? planned surgical intervention.? Correct extremity marked.? Patient seen evaluated by anesthesia department received regional anesthesia.? Once ready for surgery was taken back to the operative suite.? Patient then subsequently underwent anesthesia per the anesthesia department was transported onto the OR table.? Patient was then placed into a lateral decubitus position with a beanbag and was appropriately secured to the bed.? All bony prominences well-padded.? Patient then had the?right?upper extremity was then prepped and draped in standard orthopedic fashion.? Patient received appropriate preoperative antibiotics.? Final timeout performed. The?right?upper extremity was then held in hanging from traction utilizing sterile technique.? Next started with standard diagnostic and surgical arthroscopy with posterior portal position introduced arthroscope into the glenohumeral joint.? Visualized the glenohumeral joint I then introduced a s zulma needle within the rotator cuff interval to confirm appropriate anterior portal placement.? Once this was confirmed I then made my small incision and then introduced my arthroscopic shaver into the glenohumeral joint.? After flushing the joint fluid, was clearly evident patient had biceps tendon tearing as well as Superior labral tear. I did not appreciate any paralabral cyst within the joint. Patient had appreciable unstable biceps anchor most pronounced in the superior labrum. Given there appears to be healthy intra- articular tendon plan was for an intra-articular biceps tenodesis at the superior portion as it enters the intertubercular groove. Thermal wand introduced into the rotator interval. I then release of the rotator interval to have appropriate visualization and the ability to perform biceps tenodesis. At this point I established a purple passport cannula which was introduced. Next I performed an Arthrex loop and tack biceps tenodesis. Passer was then made arou nd the tendon luggage tag stitch around and then thru the tendon per Arthrex protocol. I then utilized a thermal wand to release the biceps tendon at the anchor to perform with tenotomy. I then loaded with suture onto an Arthrex 4.75 swivel lock suture anchor. A punch was then placed in appropriate position at the entry point into the intertubercular groove just superior to the subscapularis tendon. Punch was then introduced to the appropriate depth. The suture loaded on the swivel lock was then advanced held under appropriate tension and shoulder lock anchor was then advanced and had excellent fixation. Excess suture was then cut biceps tenodesis was complete. I then utilized a thermal wand to seal the edges of the superior labrum. Next I evaluated the subscapularis tendon which was intact and no evidence of tear. ?Next there was significant labral tearing at biceps anchor and circumferential.? ? I then subsequently utilized a a arthroscopic shaver and thermal wand to perform a labral debridement.? This point time I then visualized the glenohumeral joint.? The glenohumeral joint was found to have grade mostly grade II chondromalacia there is some focal grade 3 on the glenoid. Axillary pouch was free of loose bodies from viewing the posterior portal.? Next a visualized the rotator cuff superiorly and there was found to be a full- thickness tear of the undersurface of the supraspinatus tendon.? I utilized a spinal needle to lorraine this location.?? This completed my work within the glenohumeral joint all fluid was suctioned free of the joint.? ?Next I reintroduced the arthroscope posteriorly.? And went to the subacromial space.? I established my lateral working portal at the site of which my spinal needle was marking of the rotator cuff tear.? Thermal wand was then introduced laterally and then I subsequently performed extensive bursectomy of the subacromial space.? Patient had a large anterior bone spur.? At this point time I proceeded with my AC joint resection thermal wand was used and track to the anterior edge of the acromion and then tracked all the way to the AC joint.? Once identified the AC joint this was very arthritic in nature.? Thermal wand w as placed anteriorly to establish appropriate plane for AC joint resection.? Once appropriate margins and anterior inferior and anterior capsule was released I then introduced arthroscopic shaver and a bur and performed AC joint resection of both the acromion to cope plane at the AC joint and a distal clavicle resection was then performed totaling 1 cm in size and was confirmed.? This completed my AC joint resection and I then introduced the arthroscopic shaver laterally while continuing to view posteriorly.? I then performed an acromioplasty to complete my subacromial decompression prior to fixing the rotator cuff tear.? Next the arthroscopic shaver was then used previous spinal needle spot that is marked the in the rotator cuff this was consistent with a medium sized full- thickness tear.? Plan was for a single medial row and single lateral row anchor. At this point I debrided the rotator cuff tear to stable healthy rotator cuff tissue this equated again to a medium sized tear. I then switched to an arthroscopic shaver as well as a ring curette to debride the rotator cuff footprint of any fibrous scar tissue and had this to healthy bleeding bone. Next a utilized an accessory portal to have appropriate angle directly onto the rotator cuff footprint starting with my medial row anchor. Spinal needle and an extra incision was then subsequently made I then utilized the Arthrex punch this was then subsequent punches my medial row anchor and my a 4.75 swivel lock loaded with FiberWire and fiber tape was then subsequently advanced and appropriately secured. This point in time I then sequentially grabbed each suture limb all 4 limbs were passed through the rotator cuff starting from anterior to posterior. These had excellent spaced out purchase throughout the rotator cuff tear and then loaded these onto a 4.75 swivel lock for my lateral row anchor. I utilized a punch through the blue lateral passport cannula and then subsequently punched this over the lateral aspect of the humerus and then subsequently kept the sutures under appropriate tension to secure this repair and then subsequently advanced this under a tension-free repair of the medium size rotator cuff tear. This had excellent fixation and all excess suture limbs were removed I then subsequently took the shoulder through range of motion and the repair moved as a unit with no evidence of loss of fixation. ?I then switched the arthroscope to the lateral portal to confirm this tension- free repair.? I took the?shoulder?through range of motion and the rotator cuff repair was stable and moved as a unit. ?Next I then introduced the arthroscopic shaver posteriorly to complete my subacromial decompression appropriate complaining all the way up to the lateral edge of the acromion.? This completed the surgery.? All fluid was suctioned from the?shoulder.? All instruments were removed.? The lateral incision was then closed with nylon stitches.? As well as the portal sites closed with portal nylon stitches.? Xeroform 4 x 4's ABD and tape was then applied to the?right?shoulder?and was placed into a?shoulder?abduction pillow sling for rotator cuff repair.? Patient was then awakened from anesthesia and then taken back to PACU in stable condition.? Patient tolerated procedure without any issues. Disposition: Patient taken back in stable condition recovering well.? Dressings on in place clean dry and intact.? Will be nonweightbearing to the?right?upper extremity.? Follow rotator cuff repair protocol.? Patient to follow-up with me in the office in 2 weeks.? Patient will receive appropriate discharge instruction as well as pain medication postoperatively.? All questions answered.? We will contact the office for any questions or concerns.
--- NOTE | 2023-09-28 11:46 | P.BOP_ITS ---
Date of Procedure: [September 28, 2023] Surgeon: [Dr. Spaulding DO] Derivatives Trader(s): [Balta Spaulding PA-C] Procedure(s) performed: [Right shoulder diagnostic and surgical arthroscopy Labral debridement Rotator cuff repair (medium) Subacromial decompression AC joint resection Biceps tenodesis] Findings of the procedure(s): [Right shoulder labral and rotator cuff tear seen, AC joint arthritis and subacromial bursa seen. Biceps tendon tear] Estimated blood loss: [10 mL] Specimen(s) removed: [N/A] Post-operative diagnosis: [Right shoulder labral and rotator cuff tear seen, AC joint arthritis and subacromial bursa seen. Biceps tendon tear]
--- NOTE | 2023-09-28 11:50 | PM.PACU ---
PACU note Narrative: Patient is a 63-year-old male just over the right shoulder arthroscopy with rotator cuff repair. Patient transferred to PACU in stable condition. Pain is well controlled. shoulder Dressing on , dry and in place. Patient's operative arm is in a shoulder immobilizer. Patient is awake and alert and able to respond to my questions accordingly. Patient's fingers are warm with good perfusion. Normal cap refill under 2 seconds. Unable to assess further range of motion in arm due to sling and residual block. Unable to assess sensation due to residual localized anesthetic. Exam: awake Disposition: discharged
--- NOTE | 2023-09-28 13:20 | ANE.PACU2 ---
Inpatient post-anesthesia follow up: Airway intact: Yes Vital signs: Temperature 97.2 F Pulse Rate 51 Respiratory Rate 20 Blood Pressure 152/97 Pulse Oximetry 96 Oxygen Delivery Me thod Room Air Oxygen Flow Rate 8 Fraction of Inspir ed Oxygen Hydration adequate: Yes Nausea and vomiting: No Pain level: 1 Mental status: Baseline
== END 2023-09-28 13:23 | disposition home or self-care (01) ==
PROVIDERS: PCP Family Medicine; Visit Provider Student in an Organized Health Care Education/Training Program
PROC: (CPT 29805; principal; 2023-09-28 09:30)
PROC: (CPT 29826; 2023-09-28 09:30)
PROC: 0RSG0ZZ Reposition Right Acromioclavicular Joint, Open Approach (ICD-10-PCS; CPT 29824; 2023-09-28 09:30)
PROC: (CPT 29827; 2023-09-28 09:30)
PROC: (CPT 23430; 2023-09-28 09:30)
DX: M19.011 Primary osteoarthritis, right shoulder (principal); M75.41 Impingement syndrome of right shoulder; M75.101 Unspecified rotator cuff tear or rupture of right shoulder, not specified as traumatic; M75.21 Bicipital tendinitis, right shoulder; F17.200 Nicotine dependence, unspecified, uncomplicated
CPT/HCPCS: 29824; 29826; 29827; 29828; C1713; J0131; J0171; J0690; J1100; J1885; J2250; J2405; J2704; J2795; J3010; J3490; J7030

== ENCOUNTER → 2023-12-30 10:53 | Outpatient (BNVA) | payer MEDICAID, SELFPAY | PROVIDERS: PCP Family Medicine; Visit Provider Student in an Organized Health Care Education/Training Program | DX: Z98.890 Other specified postprocedural states (principal); M19.011 Primary osteoarthritis, right shoulder | CPT/HCPCS: 73030 ==

== ENCOUNTER 2024-07-27 05:49 | Emergency (ER) | payer MEDICAID, SELFPAY ==
[2024-07-27 06:03] VITALS: BP 187/80; PULSE 74; RESP 16; TEMP 36.5; O2SAT 99; BMI 25.7
--- NOTE | 2024-07-27 08:50 | W.ED.SKABFB ---
HPI - Skin/Abscess/Foreign Bdy General: Chief complaint: Skin/Abscess/Foreign Body Stated complaint: boil or bite in crease of leg Time Seen by Provider: 07/27/24 08:17 History of Present Illness: 64-year-old male presents emergency department chief complaint of concerns of an abscess or cellulitis that developed on the left thigh/buttocks region over the last 3 to 4 days patient endorses he was able to press out some purulent fluid after his to turn into the drain a couple of days ago he endorses it improved for a little bit but now its he is starting to get larger patient denies any fevers or chills reports mild pain to palpation reporting no other associated symptoms. Associated symptoms: Deny chills, fever(s), nausea or vomiting Related Data Home Medications ?Medication ?Instructions ?Recorded ?Confirmed naproxen 500 mg tablet,delayed 500 mg PO BID 05/06/22 04/10/24 release (EC-Naproxen) gabapentin 300 mg capsule 300 mg PO DAILY 06/23/23 04/10/24 Previous Rx's ?Medication ?Instructions ?Recorded hydrocodone 10 mg-acetaminophen 1 tab PO Q4H PRN Pain 7 days #42 09/28/23 325 mg tablet tabs celecoxib 100 mg capsule (Celebrex) 100 mg PO BID 2 weeks #28 caps 10/13/23 methocarbamol 750 mg tablet 750 mg PO TID 2 weeks #42 tabs 07/12/24 sulfamethoxazole 800 1 tab PO BID 10 days #20 tabs 07/27/24 mg-trimethoprim 160 mg tablet (Bactrim DS) tramadol 50 mg tablet 50 mg PO Q8H PRN pain #14 tabs 07/27/24 Allergies Allergy/AdvReac Type Severity Reaction Status Date / Time No Known Allergies Allergy Verified 04/10/24 11:00 Review of Systems General: Reports: 10 or more systems reviewed and unremarkable except in HPI and below Const: Denies: fever(s), chills, fatigue or malaise Eyes: Denies: change in vision or blurry vision Card: Denies: chest pain or palpitations Resp: Denies: dyspnea or productive cough GI: Denies: abdominal pain, nausea or vomiting : Denies: flank pain Musc: Denies: extremity pain or extremity swelling Skin/Breast: Reports: rash, erythema, skin tenderness and skin swelling; Denies: pruritus Neuro: Denies: headache(s) Psych: Denies: anxiety or depression Isma/Lymph: Denies: easy bleeding All/Imm: Denies: urticaria, throat swelling or facial swelling PFSH ED PFSH: Social History Smoking and tobacco/nicotine status: current every day tobacco/nicotine user Alcohol intake: never Substance/Drug Use: never Physical Exam Const: COMMON NORMALS: no acute distress, patient oriented x3 and healthy appearing HENMT: COMMON NORMALS: normocephalic and atraumatic HEAD & SCALP: normocephalic and atraumatic Eye: COMMON NORMALS: Equal, round and reactive pupils present and EOMs intact bilaterally PUPIL: Yes Equal, round and reactive pupils present Neck/C-Spine: COMMON NORMALS: full ROM, supple and no JVD Lymph: LYMPHATIC: no lymphadenopathy noted Chest: COMMONS NORMALS: normal inspection of the chest and normal palpation of entire chest wall Resp: COMMON NORMALS: normal respiratory effort, No retractions and clear to auscultation bilaterally EFFORT & INSPECTION: Yes able to speak in complete sentences and Yes symmetric chest movement AUSCULTATION: clear to auscultation bilaterally Cardio: COMMON NORMALS: no JVD, regular rate and regular rhythm RATE: regular rate RHYTHM: regular rhythm GI: COMMON NORMALS: Normal to inspection, nondistended, normoactive bowel sounds present, Soft to palpation and non-tender INSPECTION: Yes normal to inspection PALPATION: Yes Soft to palpation : COMMON NORMALS: Yes no CVA tenderness BLADDER/KIDNEY EXAM: Yes no CVA tenderness Back/Pelvis: COMMON NORMALS: no CVA tenderness Extremity: COMMON NORMALS: normal to inspection and full ROM Neuro: COMMON NORMALS: patient oriented x3, CN's II-XII intact bilaterally, moves all extremities and no focal motor deficits Psych: COMMON NORMALS: mental status grossly normal, Normal thought process present, cooperative and normal affect THOUGHT PROCESS: Normal thought process present Skin: COMMON NORMALS: negative for no rashes or lesions noted NARRATIVE SKIN EXAM: What appears to be an abscess in early abscess/cellulitis appreciated to the left thigh region no fluctuance noted small area abrasion located in the center of it no other obvious findings appreciated GENERAL SKIN EXAM: rashes and/or lesions noted Course Vital Signs: Vital signs: Vital Signs Temperature 97.7 F 07/27/24 06:03 Pulse Rate 74 07/27/24 06:03 Respiratory Rate 16 07/27/24 06:03 Blood Pressure 187/80 07/27/24 06:03 Pulse Oximetry 99 07/27/24 06:03 MDM - Skin/Abscess/Foreign Bdy Medicial Decision Making Patient appears to have a early abscess too early to be drained at this time as it is nonfluctuant we will restart the patient on some Bactrim as well as some tramadol for his breakthrough pain control did advise the patient to use warm compresses to the effected area and in which attempt to after becomes fluctuant to see if it needs to be drained or see if it will self drain did advise need for further follow-up with primary care in 3 to 5 days in which patient advised return the interim if any of his symptoms persist or worse. No radiology studies performed this visit Discharge Plan Discharge Patient Disposition: Home Clinical Impression: Abscess of left thigh Condition: Stable Prescriptions: New sulfamethoxazole-trimethoprim [Bactrim DS] 800-160 mg tablet 1 tab PO BID 10 Days Qty: 20 0RF tramadol 50 mg tablet 50 mg PO Q8H PRN (Reason: pain) Qty: 14 0RF No Action naproxen [EC-Naproxen] 500 mg tablet,delayed release (DR/EC) 500 mg PO BID gabapentin 300 mg capsule 300 mg PO DAILY celecoxib [Celebrex] 100 mg capsule 100 mg PO BID 14 Days Qty: 28 2RF methocarbamol 750 mg tablet 750 mg PO TID 14 Days Qty: 42 1RF hydrocodone-acetaminophen 10-325 mg tablet 1 tab PO Q4H PRN (Reason: Pain) 7 Days Qty: 42 0RF Discharge Orders: Discharge ED (Routine); Ordered 07/27/24 Ordered By: Gerson Huang Referrals: Remberto Ford MD [Primary Care Provider, Family Practice] - 4-7 days Discharge Diet: Usual diet Discharge Activity: Increase activity as tolerated Patient Instructions: Abscess (ED), Cellulitis (ED) Activity Restrictions/Additional Instructions: Apply warm compresses several times a day to the local location of the early abscess in which to help help promote it breaking down and drainage take the antibiotics as prescribed please further follow-up with primary care in 3 to 4 days and was to return in the interim with any of your symptoms persist or worsen Print Language: Welsh Coding Level of Care Code ED Storage Specialist for Will Lopez
[2024-07-27] MEDS: sulfamethoxazole-trimeth DS 160-800 mg Tablet 1 TAB PO (09:23)
== END 2024-07-27 09:52 | disposition home or self-care (01) ==
PROVIDERS: Emergency Provider Emergency Medicine; PCP Family Medicine
DX: L02.416 Cutaneous abscess of left lower limb (principal); Z72.0 Tobacco use
CPT/HCPCS: 99283; J9999

== ENCOUNTER 2024-08-13 09:30 | Outpatient (CLI) | payer MEDICAID, SELFPAY ==
--- NOTE | 2024-08-13 09:38 | CT_ITS ---
WS: [id number] CT chest wo con [id number] HISTORY: MULTIPLE NODULES OF LUNG TECHNIQUE: Axial imaging performed through the thorax. Coronal and sagittal reformats are submitted. All CT scans at [facility] use at least one of these dose optimization techniques: automated exposure control; mA and/or kV adjustment per patient size (includes targeted exams where dose is matched to clinical indication); or iterative reconstruction. CONTRAST: None DLP: 419.91 mGy.cm COMPARISON: 11/01/2022, 05/14/2022 Lungs and central airway: Long-term stability pleural-based mass LEFT lower lobe measuring 8.9 mm in diameter. No change since 05/14/2022. Additional stable, 3 mm nodule along the RIGHT minor fissure. No new or additional mass. No pneumonia. Pleura: Normal. No pleural effusion. Heart and pericardium: Normal size heart with no pericardial effusion. Mild coronary artery calcification. Mediastinum and honorio: Mild atherosclerosis aorta. Normal size pulmonary artery. Vessels: Normal size aortic and pulmonary artery. No coronary artery calcifications. Chest wall and lower neck: No soft tissue masses. Upper abdomen: Small hiatal hernia. Low-attenuation areas in the RIGHT lobe of the liver were described on 03/29/2023 without progression. 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 Osseous structures: Sclerotic changes within the thoracic and lumbar vertebral bodies have been previously described probably related to degenerative spondylosis. MRI from 05/14/[address]/CT chest wo con [id number] IMPRESSION: 1. Long-term stability LEFT lower lobe pleural-based mass measuring 8.9 mm. No additional work-up necessary. Stable since 05/14/2022. 2. Mild atherosclerosis aorta. 3. 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
== END 2024-08-13 09:31 | disposition home or self-care (01) ==
PROVIDERS: PCP Family Medicine; Visit Provider Family Medicine
DX: R91.8 Other nonspecific abnormal finding of lung field (principal); I70.0 Atherosclerosis of aorta; I72.2 Aneurysm of renal artery; I25.10 Atherosclerotic heart disease of native coronary artery without angina pectoris; K44.9 Diaphragmatic hernia without obstruction or gangrene; R93.2 Abnormal findings on diagnostic imaging of liver and biliary tract; R93.7 Abnormal findings on diagnostic imaging of other parts of musculoskeletal system
CPT/HCPCS: 71250

== ENCOUNTER 2024-09-24 12:32 | Emergency (ER) | payer MEDICAID, SELFPAY ==
--- OUTSIDE RECORDS SUMMARY | 2024-09-24 12:36 | XMS_ITS | Clinical Summary ---
Author Organization [facility] Address [address] [address] Phone Care Team Providers Care Power Operator Name Role Phone Unavailable Primary Care Provider Unavailabl e Allergies No known active allergies Medications No known medications Active Problems No known active problems Social History Tobacco Use Types Packs/Day Years Used Date Smoking Tobacco: Every Day Cigarettes Tobacco Cessation:Ready to Q uit: Not Asked; Counseling Given: Not Answered Alcohol Use Standard Drinks/Week Comments Yes 0 (1 standard drink = 0.6 oz pur e alcohol) Sex and Gender Information Value Date Recorded Sex Assigned at Not on file Legal Sex Male 11:11 AM [employer] GUIDE Gender Identity Not on file Sexual Orientation Not on file Last Filed Vital Signs Vital Sign Reading Time Taken Comments Blood Pressure 165/85 01/23/2023 12:00 PM [facility]URE GUIDE Pulse 80 01/23/2023 12:00 PM AD[facility]URE GUIDE Temperature 36.7 C (98 F) 01/23/2023 11:20 AM ADVENTURE GUIDE Respiratory Rate 15 01/23/2023 11:20 AM AD[facility]URE GUIDE Oxygen Saturation 98% 01/23/2023 12:00 PM AD[facility]URE GUIDE Inhaled Oxygen Concentration - - Weight 95 kg (209 lb 6.4 oz) 01/23/2023 11:20 AM ADVENTURE GUIDE Height 188 cm (6' 2 ) 01/23/2023 11:20 AM AD[facility]URE GUIDE Body Mass Index 26.89 01/23/2023 11:20 AM ADVENTURE GUIDE Plan of Treatment Health Maintenance Due Date Last Done Comments DTAP/TDAP/TD VACCINES (1 - Tdap) 1980 COLORECTAL SCREENING 2006 Colorectal Cancer Screening 2006 FIT-DNA Q 3 years 2006 FIT/FOBT Q 1 year 2006 Flex Sig/CT Colonography Q 5 years 2006 ZOSTER VACCINE (1 of 2) 2011 INFLUENZA VACCINE (#1) 2024 RSV VACCINE (60+ or ) (1 - 1-dose 75+ series) [address] [place] [address] [address] HEALTH PLAN MEDICAID
[2024-09-24 12:45] VITALS: BP 140/86; PULSE 77; RESP 16; TEMP 36.5; O2SAT 98; BMI 25.0
--- NOTE | 2024-09-24 13:20 | W.ED.BACK ---
HPI - Back Pain/Injury General: Chief Complaint: Back Pain/Injury Stated Complaint: back pain Time Seen by Provider: 09/24/24 12:54 Source: patient Mode of arrival: ambulatory Limitations: no limitations History of Present Illness: Patient is a 64-year-old male who presents to ED today with a complaint of acute on chronic back pain. Patient states he has a longstanding history of chronic back pain in which he sees Dr. Beal with pain management for. States he takes hydrocodone 10mg/325mg 4 times daily. He states his back will flareup about once a year. 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 He is not complaining of saddle anesthesia or bowel or bladder incontinence/retention. He states his pain currently feels like his chronic back pain just worse in severity. MD elicited complaint: back pain Pertinent past history: prior back pain Onset (ago): day(s) Timing: constant Severity: severe Similar Symptoms Previously: Yes Quality: burning and sharp Location: lumbar spine Radiation: none Exacerbating factors: movement Relieving factors: none Associated symptoms: Reports no associated symptoms; Deny abdominal pain, chills, difficulty walking, dysuria, fatigue, fever(s) or hematuria Work related injury: No Related Data Home Medications ?Medication ?Instructions ?Recorded ?Confirmed gabapentin 300 mg capsule 300 mg PO DAILY 06/23/23 04/10/24 Previous Rx's ?Medication ?Instructions ?Recorded hydrocodone 10 mg-acetaminophen 1 tab PO Q4H PRN Pain 7 days #42 09/28/23 325 mg tablet tabs ibuprofen 600 mg tablet 600 mg PO Q8H PRN pain #20 tabs 09/24/24 methocarbamol 500 mg tablet 1,000 mg (2 x 500 mg) PO Q8H #30 09/24/24 tabs methylprednisolone 4 mg tablets in See Rx Instructions PO .COMPLEX 09/24/24 a dose pack (Medrol (Denis)) #21 ea Allergies Allergy/AdvReac Type Severity Reaction Status Date / Time No Known Allergies Allergy Verified 09/24/24 12:48 Review of Systems Const: Denies: fever(s), chills, body aches, fatigue or malaise GI: Denies: abdominal pain : Denies: flank pain, dysuria or hematuria Musc: Reports: back pain; Denies: neck pain, extremity pain, extremity swelling, joint pain, joint swelling or joint redness Neuro: Denies: numbness in extremities, weakness in extremities, sensory changes or difficulty walking [facility] ED PFSH: Social History Smoking and tobacco/nicotine status: current every day tobacco/nicotine user Alcohol intake: never Substance/Drug Use: never Physical Exam Const: COMMON NORMALS: no acute distress, average body habitus, patient oriented x3, no limitations, healthy appearing, alert and well nourished GENERAL APPEARANCE: cooperative ORIENTATION/CONSCIOUSNESS: Yes awake, Yes oriented to person, Yes oriented to place and Yes oriented to time GI: COMMON NORMALS: Normal to inspection, nondistended, normoactive bowel sounds present, Soft to palpation, non-tender and no masses PALPATION: Yes Soft to palpation : COMMON NORMALS: Yes no CVA tenderness BLADDER/KIDNEY EXAM: Yes no CVA tenderness Back/Pelvis: COMMON NORMALS: no CVA tenderness, thoracic and lumbar spine normal to inspection and straight leg raise negative bilaterally LUMBAR SPINE/LOWER BACK: Yes lumbar spinal tenderness, Yes paraspinal muscle tenderness, No paraspinal muscle spasm and No mass present PELVIS: Yes buttocks normal and Yes sciatic notch tenderness SACROILIAC JOINTS: Yes SI joint(s) abnormal SI joint details: tender to palpation SACRUM: no tenderness COCCYX: no tenderness Extremity: COMMON NORMALS: capillary refill normal, no clubbing, cyanosis or edema, no calf tenderness and no pedal edema GENERAL: Yes normal exam except as noted Neuro: COMMON NORMALS: patient oriented x3, moves all extremities, no focal motor deficits, no sensory deficits noted and gait normal SENSORIUM/ORIENTATION: Yes alert, Yes oriented to person, Yes oriented to place and Yes oriented to time Course Vital Signs: Vital signs: Vital Signs Temperature 97.7 F 09/24/24 12:45 Pulse Rate 77 09/24/24 12:45 Respiratory Rate 16 09/24/24 12:45 Blood Pressure 140/86 09/24/24 12:45 Pulse Oximetry 98 09/24/24 12:45 Oxygen Delivery Me thod Room Air 09/24/24 12:45 MDM - Back Pain/Injury Medical Decision Making Patient can continue his normal opiate dose. Will add anti-inflammatories, steroids, muscle relaxers. Recommend he follow-up with pain management and/or primary care if symptoms do not improve. He does state he has an appointment with pain management in a week or so. Medical Records I reviewed the patient's medical records. No radiology studies performed this visit Discharge Plan Discharge Patient Disposition: Home Clinical Impression: Acute exacerbation of chronic low back pain Condition: Stable Prescriptions: New methocarbamol 500 mg tablet 1,000 mg PO Q8H Qty: 30 0RF methylprednisolone [Medrol (Denis)] 4 mg tablets,dose pack See Rx Instructions .ROUTE .COMPLEX Qty: 21 0RF Rx Instructions: orally per package directions ibuprofen 600 mg tablet 600 mg PO Q8H PRN (Reason: pain) Qty: 20 0RF Continued gabapentin 300 mg capsule 300 mg PO DAILY hydrocodone-acetaminophen 10-325 mg tablet 1 tab PO Q4H PRN (Reason: Pain) 7 Days Qty: 42 0RF Discontinued naproxen [EC-Naproxen] 500 mg tablet,delayed release (DR/EC) 500 mg PO BID celecoxib [Celebrex] 100 mg capsule 100 mg PO BID 14 Days Qty: 28 2RF methocarbamol 750 mg tablet 750 mg PO TID 14 Days Qty: 42 1RF tramadol 50 mg tablet 50 mg PO Q8H PRN (Reason: pain) Qty: 14 0RF Discharge Orders: Discharge ED (Routine); Ordered 09/24/24 Ordered By: Lilia Bryan Referrals: Remberto Ford MD [Primary Care Provider, Family Practice] Patient Instructions: Patient Portal & Celi Instructions Print Language: Mohawk Coding Level of Care Code ED Travel Money Advisor for Will Lopez
[2024-09-24 13:43] VITALS: RESP 18
[2024-09-24] MEDS: orphenadrine 30 mg/mL Inj 2 mL 60 MG IM (13:43)
[2024-09-24] MEDS: morphine 4 mg/mL SDV 1 mL IM (13:43)
[2024-09-24 13:44] VITALS: BP 128/78; PULSE 82; RESP 16; O2SAT 100
== END 2024-09-24 13:45 | disposition home or self-care (01) ==
PROVIDERS: Emergency Provider Physician Assistant; PCP Family Medicine
DX: M54.50 Low back pain, unspecified (principal); Z72.0 Tobacco use
CPT/HCPCS: 96372; 99284; J1100; J1885; J2270; J2360

== ENCOUNTER 2024-10-31 18:56 | Emergency (ER) | payer MEDICAID, SELFPAY ==
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
--- OUTSIDE RECORDS SUMMARY | 2024-10-31 19:05 | XMS_ITS | Clinical Summary ---
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 Inhaled Oxygen Concentration - - Weight 95 kg (209 lb 6.4 oz) 01/23/2023 11:20 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
--- OUTSIDE RECORDS SUMMARY | 2024-10-31 19:05 | XMS_ITS | Patient Health Record ---
Author Organization [facility] Address [address] [place] [id number] Care Team Providers Care Photographic Printer Name Role Phone CAROLINA DAILY Primary Care Provider Unavailabl e Michelle Roth Unavailable [phone] Allergies No Known Allergies Reason For Referral Reason EVAL AND TREAT Diagnosis 1 Testosterone deficie ncy in male (E29.1) Referring Provider First Name CAROLINA Referring Provider Last Name ABIMBOLA Referred Organization [facility] Referred Provider Michelle Roth Referred Address [address] [place] [address],[place],[id number], Referred Provider Specialty Nurse Shey orta Referral Priority Routine Medications Medication SIG (Take, Route, Frequency, Duration) Notes Start Date End Date Status Lisinopril-hydroCHLOR Othiazide 20-25 MG 1 tablet Orally Once a day Active Gabapentin 300 MG 1 capsule Orally Onc e a day Active Eads 10/325 3-4 times daily Active Amitriptyline HCl 25 MG 1 tablet at bedtime Orally Once a day As needed Active Testosterone Cypionate 200 MG/ML 1.5 mL Intramuscular every 7 day; Duration: 30 days supply in single dose vials please supply with 3ml syringes, 18g draw needles, and 22g injection needles. Active Social History Tobacco Use: Social History Observation Description Date Details (start date - stop date) Current Smoker NA - NA Tobacco Control (Standard) Question Answer Notes Tobacco use: Current smoker How often do you smoke cigarettes? Every day How many cigarettes a day do you smoke? 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) Testosterone deficiency in male (E29.1) Active confirmed Vital Signs Heart Rate 68 /min 09/28/2024 Blood pressure diastolic 90 mm Hg 09/28/2024 Oximetry 98 % 09/28/2024 Height 74 in 09/28/2024 Blood pressure systolic 160 mm Hg 09/28/2024 Weight 197.0 lbs 09/28/2024 BMI 25.29 kg/m2 09/28/2024 Encounters Encounter Location Date Provider Diagnosis [facility] [address] [place] [address] 09/28/2024 Michelle Roth Hypogonadism male E29.1 ; Essential hypertension I10 ; Nocturia R35.1 ; Hx of hepatitis C Z86.19 ; Elevated blood pressure reading R03.0 and Body mass index [BMI] 25.0-25.9, adult Z68.25 [facility] [address] [place] [address] 09/24/2024 Michelle Roth Assessments Encounter Date Diagnosis (ICD Code) Assessment Notes Treatment Notes Treatment Clinical Notes Section Notes 09/28/2024 Essential hypertension (ICD-10 - I10) 09/28/2024 Hypogonadism male (ICD-10 - E29.1) I have reviewed all of his records prior to his visit today. He has not had any labs done since April. His testosterone at that time was 530. I could not find an estrogen level on him in any of the records. His blood counts and liver all look normal along with his PSA. At this time I agreed to increase his testosterone cypionate to 300 mg weekly which is 1.5 mL. I have discussed the potential risk with higher doses of testosterone with him. I also discussed other forms of testosterone that can be used including pellets but at this time he would like to continue with injections. I will have him repeat labs in 4 weeks and have given him a copy of the lab orders to take to his local PCP. He will get his labs drawn 3 to 4 days after an injection. I have printed a prescription for his testosterone that he will take to his local pharmacy of choice. He will report any changes or concerns to me. Otherwise I will see him back in 6 weeks for further evaluation of his TRT. All questions were answered and he agrees to this plan. 09/28/2024 Nocturia (ICD-10 - R35.1) He needs to take his diuretic earlier in the day, can try morning or early afternoon to prevent any urinary issues in the evening. I also advised him to increase his fluid intake throughout the day and to avoid all of it before bed. He will make these changes and see how he does over the next few weeks. Should he have no relief with the changes we will discuss other options at his next appointment. 09/28/2024 Hx of hepatitis C (ICD-10 - Z86.19) 09/28/2024 Elevated blood pressure reading (ICD-10 - R03.0) His blood pressure came down slightly while sitting in the office. He did smoke and drink a lot of caffeine before his appointment. He does not have a cuff at home to check his BP but reports it is typicall 140/70s when he is at the doctors. He denies any symptoms today. I instructed him to get a cuff for home, either online or through a local store and start checking it daily and keeping a log of it. He needs to avoid tobacco use and caffeine prior to checking his BP and should avoid this prior to his next appointment with me. I want him to bring this log in to his next appointment for my review. He understands the risks with high doses of testosterone on the BP and potential for stroke and cardiovascular events. 09/28/2024 Body mass index [BMI] 25.0-25.9, adult (ICD-10 - Z68.25) Plan Of Treatment Pending Test Test Name Order Date HEPATIC FUNCTION PANEL (60552) HEMOGLOBIN (510) 09/28/2024 HEMATOCRIT (509) 09/28/2024 ESTRADIOL (4021) 09/28/2024 TESTOSTERONE, TOTAL, MALES (ADULT), [place] ( 873) 09/28/2024 PSA, TOTAL (5363) 09/28/2024 Next Appt Details Provider Name:Michelle sam, 11/08/2024 04:00:00 PM, [address] [place], [address], Insurance Providers Payer Name Payer Address Payer Phone Subscriber Number Group Number Insured Name Patient Relationship to Insured Coverage Start Date Coverage End Date [place] [employer] [facility] [address] [place] [address] [id number] OLIVER COHEN Self - patient is the insured Medical (General) History Medical History History ICD Code hypertension male hypogonadism Surgical History Surgery Date(Month/Year) right shoulder repair 2023 Hospitalization History Reason Date(Month/Year) ER visit for back 2024
--- OUTSIDE RECORDS SUMMARY | 2024-10-31 19:05 | XMS_ITS | Patient Health Record ---
Author Organization [facility] Address [address] [place] [address] Care Team Providers Care Tobacco Sample Puller Name Role Phone Remberto Ford MD Primary Care Provider Unavaila Teena Craig Unavailable [phone] Migration, Provider Unavailable Unavailable Riccardo Harris Unavailable [phone] Allergies No Known Allergies Results Component Value Reference Range Flag Notes Urine Drug Screen (cup read) - [id number] Reviewed date:08/09/2024 04:09:30 PM Interpretation: Performing Lab: Notes/Report: BZO + OPI + OXY + Urine Drug Screen (cup read) - [id number] Reviewed date:06/14/2024 10:00:19 AM Interpretation: Performing Lab: Notes/Report: OPI + OXY + Urine Drug Screen (cup read) - 60000 Reviewed date:09/28/2024 03:39:34 PM Interpretation: Performing Lab: Notes/Report: OPI + OXY + zzzUrine Drug Screen (confir mation by instrument) - [id number] Reviewed date:03/21/2024 03:03:28 PM Interpretation: Performing Lab: Notes/Report: Urine Confirmation Panel (in strument) - [id number] Reviewed date:08/14/2024 02:00:24 PM Interpretation: Performing Lab: Notes/Report: 6-Acetylmorphine 0 <6 ng/mL N This homer t was developed and its performance characteristics determined by [facility]. It has not been cleared or approved by the U.S. Food and Drug Administration. 7-Aminoclonazepam 0 <60 ng/mL N This te st was developed and its performance characteristics determined by [facility]. It has not been cleared or approved by the U.S. Food and Drug Administration. Alprazolam 0 <60 ng/mL N This test was developed and its performance characteristics determined by [facility]. It has not been cleared or approved by the U.S. Food and Drug Administration. Amphetamine 0 <75 ng/mL N This test was developed and its performance characteristics determined by [facility]. It has not been cleared or approved by the U.S. Food and Drug Administration. aOH-Alprazolam 0 <60 ng/mL N This test was developed and its performance characteristics determined by [facility]. It has not been cleared or approved by the U.S. Food and Drug Administration. Buprenorphine 0.0 <7.5 ng/mL N This test w as developed and its performance characteristics determined by [facility]. It has not been cleared or approved by the U.S. Food and Drug Administration. Norbuprenorphine 0.0 <37.5 ng/mL N This te st was developed and its performance characteristics determined by [facility]. It has not been cleared or approved by the U.S. Food and Drug Administration. Carisoprodol 0 <75 ng/mL N This test wa s developed and its performance characteristics determined by [facility]. It has not been cleared or approved by the U.S. Food and Drug Administration. Codeine 0 <75 ng/mL N This test was developed and its performance characteristics determined by [facility]. It has not been cleared or approved by the U.S. Food and Drug Administration. EDDP 0 <75 ng/mL N This test was developed and its performance characteristics determined by [facility]. It has not been cleared or approved by the U.S. Food and Drug Administration. Fentanyl 0 <6 ng/mL N This test was developed and its performance characteristics determined by [facility]. It has not been cleared or approved by the U.S. Food and Drug Administration. Hydrocodone 2615 <75 ng/mL H This test was developed and its performance characteristics determined by [facility]. It has not been cleared or approved by the U.S. Food and Drug Administration. Hydromorphone 176 <75 ng/mL H This test w as developed and its performance characteristics determined by [facility]. It has not been cleared or approved by the U.S. Food and Drug Administration. Lorazepam 0 <60 ng/mL N This test was developed and its performance characteristics determined by [facility]. It has not been cleared or approved by the U.S. Food and Drug Administration. MDMA 0 <75 ng/mL N This test was developed and its performance characteristics determined by [facility]. It has not been cleared or approved by the U.S. Food and Drug Administration. Meperidine 0.0 <37.5 ng/mL N This test was developed and its performance characteristics determined by [facility]. It has not been cleared or approved by the U.S. Food and Drug Administration. Meprobamate 0 <75 ng/mL N This test was developed and its performance characteristics determined by [facility]. It has not been cleared or approved by the U.S. Food and Drug Administration. Methamphetamine 10 <75 ng/mL N This test was developed and its performance characteristics determined by [facility]. It has not been cleared or approved by the U.S. Food and Drug Administration. Methadone 0 <75 ng/mL N This test was developed and its performance characteristics determined by [facility]. It has not been cleared or approved by the U.S. Food and Drug Administration. Morphine 0 <75 ng/mL N This test was developed and its performance characteristics determined by [facility]. It has not been cleared or approved by the U.S. Food and Drug Administration. Nordiazepam 0 <60 ng/mL N This test was developed and its performance characteristics determined by [facility]. It has not been cleared or approved by the U.S. Food and Drug Administration. Norfentanyl 0 <6 ng/mL N This test was developed and its performance characteristics determined by [facility]. It has not been cleared or approved by the U.S. Food and Drug Administration. Normeperidine 0.0 <37.5 ng/mL N This test was developed and its performance characteristics determined by [facility]. It has not been cleared or approved by the U.S. Food and Drug Administration. O-desmethyltramadol 0 <75 ng/mL N This test was developed and its performance characteristics determined by [facility]. It has not been cleared or approved by the U.S. Food and Drug Administration. Oxazepam 0 <60 ng/mL N This test was developed and its performance characteristics determined by [facility]. It has not been cleared or approved by the U.S. Food and Drug Administration. Oxycodone 0.0 <37.5 ng/mL N This test was developed and its performance characteristics determined by [facility]. It has not been cleared or approved by the U.S. Food and Drug Administration. Oxymorphone 0 <75 ng/mL N This test was developed and its performance characteristics determined by [facility]. It has not been cleared or approved by the U.S. Food and Drug Administration. Phencyclidine 0.0 <7.5 ng/mL N This test w as developed and its performance characteristics determined by [facility]. It has not been cleared or approved by the U.S. Food and Drug Administration. Tapentadol 0.0 <37.5 ng/mL N This test was developed and its performance characteristics determined by [facility]. It has not been cleared or approved by the U.S. Food and Drug Administration. Temazepam 0 <60 ng/mL N This test was developed and its performance characteristics determined by [facility]. It has not been cleared or approved by the U.S. Food and Drug Administration. Tramadol 0 <75 ng/mL N This test was developed and its performance characteristics determined by [facility]. It has not been cleared or approved by the U.S. Food and Drug Administration. Norhydrocodone >5000 <75 ng/mL > This test was developed and its performance characteristics determined by [facility]. It has not been cleared or approved by the U.S. Food and Drug Administration. Noroxycodone 0 <38 ng/mL N This test wa s developed and its performance characteristics determined by [facility]. It has not been cleared or approved by the U.S. Food and Drug Administration. Pregabalin 0 <225 ng/mL N This test was developed and its performance characteristics determined by [facility]. It has not been cleared or approved by the U.S. Food and Drug Administration. Gabapentin >76255 <225 ng/mL > This test was developed and its performance characteristics determined by [facility]. It has not been cleared or approved by the U.S. Food and Drug Administration. Benzoylecgonine 0.0 <37.5 ng/mL N This homer t was developed and its performance characteristics determined by [facility]. It has not been cleared or approved by the U.S. Food and Drug Administration. 4-Hydroxy Xylazine 0 <25 ng/mL N This t est was developed and its performance characteristics determined by [facility]. It has not been cleared or approved by the U.S. Food and Drug Administration. Urine Confirmation Panel (in strument) - [id number] Reviewed date:06/19/2024 11:03:53 AM Interpretation: Performing Lab: Notes/Report: 6-Acetylmorphine 0 <6 ng/mL N This homer t was developed and its performance characteristics determined by [facility]. It has not been cleared or approved by the U.S. Food and Drug Administration. 7-Aminoclonazepam 0 <60 ng/mL N This te st was developed and its performance characteristics determined by [facility]. It has not been cleared or approved by the U.S. Food and Drug Administration. Alprazolam 0 <60 ng/mL N This test was developed and its performance characteristics determined by [facility]. It has not been cleared or approved by the U.S. Food and Drug Administration. Amphetamine 0 <75 ng/mL N This test was developed and its performance characteristics determined by [facility]. It has not been cleared or approved by the U.S. Food and Drug Administration. aOH-Alprazolam 0 <60 ng/mL N This test was developed and its performance characteristics determined by [facility]. It has not been cleared or approved by the U.S. Food and Drug Administration. Buprenorphine 0.0 <7.5 ng/mL N This test w as developed and its performance characteristics determined by [facility]. It has not been cleared or approved by the U.S. Food and Drug Administration. Norbuprenorphine 0.0 <37.5 ng/mL N This te st was developed and its performance characteristics determined by [facility]. It has not been cleared or approved by the U.S. Food and Drug Administration. Carisoprodol 0 <75 ng/mL N This test wa s developed and its performance characteristics determined by [facility]. It has not been cleared or approved by the U.S. Food and Drug Administration. Codeine 0 <75 ng/mL N This test was developed and its performance characteristics determined by [facility]. It has not been cleared or approved by the U.S. Food and Drug Administration. EDDP 0 <75 ng/mL N This test was developed and its performance characteristics determined by [facility]. It has not been cleared or approved by the U.S. Food and Drug Administration. Fentanyl 0 <6 ng/mL N This test was developed and its performance characteristics determined by [facility]. It has not been cleared or approved by the U.S. Food and Drug Administration. Hydrocodone 955 <75 ng/mL H This test was developed and its performance characteristics determined by [facility]. It has not been cleared or approved by the U.S. Food and Drug Administration. Hydromorphone 208 <75 ng/mL H This test w as developed and its performance characteristics determined by [facility]. It has not been cleared or approved by the U.S. Food and Drug Administration. Lorazepam 0 <60 ng/mL N This test was developed and its performance characteristics determined by [facility]. It has not been cleared or approved by the U.S. Food and Drug Administration. MDMA 0 <75 ng/mL N This test was developed and its performance characteristics determined by [facility]. It has not been cleared or approved by the U.S. Food and Drug Administration. Meperidine 0.0 <37.5 ng/mL N This test was developed and its performance characteristics determined by [facility]. It has not been cleared or approved by the U.S. Food and Drug Administration. Meprobamate 0 <75 ng/mL N This test was developed and its performance characteristics determined by [facility]. It has not been cleared or approved by the U.S. Food and Drug Administration. Methamphetamine 0 <75 ng/mL N This test was developed and its performance characteristics determined by [facility]. It has not been cleared or approved by the U.S. Food and Drug Administration. Methadone 0 <75 ng/mL N This test was developed and its performance characteristics determined by [facility]. It has not been cleared or approved by the U.S. Food and Drug Administration. Morphine 0 <75 ng/mL N This test was developed and its performance characteristics determined by [facility]. It has not been cleared or approved by the U.S. Food and Drug Administration. Nordiazepam 0 <60 ng/mL N This test was developed and its performance characteristics determined by [facility]. It has not been cleared or approved by the U.S. Food and Drug Administration. Norfentanyl 0 <6 ng/mL N This test was developed and its performance characteristics determined by [facility]. It has not been cleared or approved by the U.S. Food and Drug Administration. Normeperidine 0.0 <37.5 ng/mL N This test was developed and its performance characteristics determined by [facility]. It has not been cleared or approved by the U.S. Food and Drug Administration. O-desmethyltramadol 0 <75 ng/mL N This test was developed and its performance characteristics determined by [facility]. It has not been cleared or approved by the U.S. Food and Drug Administration. Oxazepam 0 <60 ng/mL N This test was developed and its performance characteristics determined by [facility]. It has not been cleared or approved by the U.S. Food and Drug Administration. Oxycodone 0.0 <37.5 ng/mL N This test was developed and its performance characteristics determined by [facility]. It has not been cleared or approved by the U.S. Food and Drug Administration. Oxymorphone 0 <75 ng/mL N This test was developed and its performance characteristics determined by [facility]. It has not been cleared or approved by the U.S. Food and Drug Administration. Phencyclidine 0.0 <7.5 ng/mL N This test w as developed and its performance characteristics determined by [facility]. It has not been cleared or approved by the U.S. Food and Drug Administration. Tapentadol 0.0 <37.5 ng/mL N This test was developed and its performance characteristics determined by [facility]. It has not been cleared or approved by the U.S. Food and Drug Administration. Temazepam 0 <60 ng/mL N This test was developed and its performance characteristics determined by [facility]. It has not been cleared or approved by the U.S. Food and Drug Administration. Tramadol 0 <75 ng/mL N This test was developed and its performance characteristics determined by [facility]. It has not been cleared or approved by the U.S. Food and Drug Administration. Norhydrocodone 450 <75 ng/mL H This test was developed and its performance characteristics determined by [facility]. It has not been cleared or approved by the U.S. Food and Drug Administration. Noroxycodone 0 <38 ng/mL N This test wa s developed and its performance characteristics determined by [facility]. It has not been cleared or approved by the U.S. Food and Drug Administration. Pregabalin 0 <225 ng/mL N This test was developed and its performance characteristics determined by [facility]. It has not been cleared or approved by the U.S. Food and Drug Administration. Gabapentin >08298 <225 ng/mL > This test was developed and its performance characteristics determined by [facility]. It has not been cleared or approved by the U.S. Food and Drug Administration. Benzoylecgonine 0.0 <37.5 ng/mL N This homer t was developed and its performance characteristics determined by [facility]. It has not been cleared or approved by the U.S. Food and Drug Administration. 4-Hydroxy Xylazine 0 <25 ng/mL N This t est was developed and its performance characteristics determined by [facility]. It has not been cleared or approved by the U.S. Food and Drug Administration. Tox Results Reviewed date:08/14/2024 02:07:28 PM Interpretation: Performing Lab: Notes/Report: Tox Results Reviewed date:06/19/2024 02:27:53 PM Interpretation: Performing Lab: Notes/Report: Reason For Referral No Information Medications Medication SIG (Take, Route, Frequency, Duration) Notes Start Date End Date Status DICLOFENAC SODIUM 50MG DR TABLETS TAKE 1 TABLET BY MOUTH THREE TIMES DAILY NEEDED FOR PAIN *Reorder from [facility] for eRx and Interaction Alerts* Unknown AMITRIPTYLINE 25MG TABLETS TAKE 1 TABLET BY MOUTH AT BEDTIME *Reorder from [employer] for eRx and Interaction Alerts* Unknown Gabapentin 300 MG Capsule 1 capsule Orally Once a day; Duration: 30 day(s) 01/25/2024 Unknown Gabapentin 300 MG Capsule 1 capsule Orally Once a day; Duration: 30 days As needed Fill 30 days from previous RX 09/28/2024 Active TESTOSTERONE CYP 200MG/ML MDV 10ML INJECT 1 ML IN THE MUSCLE ONCE EVERY WEEK *Reorder from [facility] for eRx and Interaction Alerts* Unknown HYDROcodone-Acetamin ophen 10-325 MG Tablet 1 tablet as needed Orally every 6 hrs; Duration: 30 days As needed Not to exceed 4 per day Fill on 10-12-24 10/09/2024 11/11/2024 Active Social History Social History Additional Details Category Social Info Options Details Migrated Social History Migrated Social History Education - High School, If yes, frequency of alcoholic beverages - 2-3 drinks per week, Marital Status - , Smoking - 1/2 PPD, Smoking status (MU) - Current every day smoker, Working currently? - Yes Problems Problem Type SNOMED Code ICD Code Onset Dates Problem Status W/U Status Risk Notes Problem Chronic pain syndrome (196510881) Chronic pain syndrome (G89.4) Active confirmed Problem Localized, primary osteoarthritis of the shoulder region (675025932) Primary osteoarthritis, right shoulder (M19.011) Active confirmed Problem Lumbosacral spondylosis without myelopathy (38629097) Other spondylosis with radiculopathy, lumbosacral region (M47.27) Active confirmed Problem Degeneration of lumbar intervertebral disc (20540464) Other intervertebral disc degeneration, lumbar region (M51.36) Active confirmed Problem Abnormal gait (55071718) Unspecified abnormalities of gait and mobility (R26.9) Active confirmed Problem Spinal stenosis of lumbar region (76634038) Spinal stenosis, lumbar region without neurogenic claudication (M48.061) Active confirmed Problem Lumbosacral spondylosis with radiculopathy (433985659) Lumbosacral spondylosis with radiculopathy (M47.27) Active confirmed Problem Spinal stenosis of lumbar region (02512756) Spinal stenosis of lumbar region, unspecified whether neurogenic claudication present (M48.061) Active confirmed Problem Localized, primary osteoarthritis of the shoulder region (002766249) Arthrosis of right acromioclavicular joint (M19.011) Active confirmed Problem Abnormal gait (10546371) Abnormality of gait and mobility (R26.9) Active confirmed Problem Lumbosacral spondylosis (362768663) Lumbosacral spondylosis (M47.817) Active confirmed Vital Signs Height-cm 180.34 cm 08/09/2024 Weight-kg 90.72 kg 08/09/2024 Height 71.00 in 08/09/2024 Weight 200 lbs 08/09/2024 BMI 27.89 kg/m2 08/09/2024 Procedures Procedure Date Ordered Date Performed Result Body Sit e Epidural, Lumbar/Sacral (Cau shannon), w/ imaging guidance - 53035 05/17/2024 05/17/2024 N/A Facet Inj. 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 Z79.891 and Other intervertebral disc degeneration, lumbar region M51.36 [facility] [address] [place] [address] 10/23/2024 Riccardo Harirs Lumbosacral spondylo sis M47.817 [facility] [address] [place] [address] 12/08/2023 Teena Villa [facility] [address] [place] [address] 01/25/2024 Riccardo Harris Chronic pain syndrom e G89.4 ; Vertebrogenic low back pain M54.51 ; Degeneration of intervertebral disc of lumbar region with discogenic back pain and lower extremity pain M51.362 ; Lumbosacral spondylosis with radiculopathy M47.27 ; Spinal stenosis of lumbar region, unspecified whether neurogenic claudication present M48.061 ; Pain in right shoulder M25.511 ; Arthrosis of right acromioclavicular joint M19.011 ; Lateral epicondylitis, unspecified laterality M77.10 ; Abnormality of gait and mobility R26.9 and 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 Z79.891 [facility] [address] [place] [address] 02/21/2024 Riccardo Clarencekylee Lumbosacral spondylo sis with radiculopathy M47.27 [facility] [address] [place] [address] 03/14/2024 Riccardo Clarencejessicakristina Chronic pain syndrom e G89.4 ; Vertebrogenic low back pain M54.51 ; Degeneration of intervertebral disc of lumbar region with discogenic back pain and lower extremity pain M51.362 ; Lumbosacral spondylosis with radiculopathy M47.27 ; Spinal stenosis of lumbar region, unspecified whether neurogenic claudication present M48.061 ; Pain in right shoulder M25.511 ; Arthrosis of right acromioclavicular joint M19.011 ; Lateral epicondylitis, unspecified laterality M77.10 ; Abnormality of gait and mobility R26.9 and 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 Z79.891 [facility] [address] [address] 05/17/2024 Riccardo Harris Lumbosacral spondylo sis with radiculopathy M47.27 [facility] [address] [address] 06/14/2024 Teena Villa Chronic pain syndrom e G89.4 ; Vertebrogenic low back pain M54.51 ; Arthrosis of right acromioclavicular joint M19.011 ; Degeneration of intervertebral disc of lumbar region with discogenic back pain and lower extremity pain M51.362 ; Lumbosacral spondylosis with radiculopathy M47.27 ; Spinal stenosis of lumbar region, unspecified whether neurogenic claudication present M48.061 ; Pain in right shoulder M25.511 ; Lateral epicondylitis, unspecified laterality M77.10 ; Abnormality of gait and mobility R26.9 and 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 Z79.891 [facility] [address] [place] [address] 08/09/2024 Teena Villa Chronic pain syndrom e G89.4 ; Primary osteoarthritis, right shoulder M19.011 ; Other spondylosis with radiculopathy, lumbosacral region M47.27 ; Other intervertebral disc degeneration, lumbar region M51.36 ; Lateral epicondylitis, unspecified elbow M77.10 ; Unspecified abnormalities of gait and mobility R26.9 ; Pain in right shoulder M25.511 ; Spinal stenosis, lumbar region without neurogenic claudication M48.061 ; Vertebrogenic low back pain M54.51 ; Tobacco use Z72.0 and senior care (current) use of opiate analgesic Z79.891 [facility] 0 0 12/17/2023 Provider Migration [facility]Fac[facility] 0 0 12/18/2023 Provider Migration [facility] [place] [address] [place] [address] 01/09/2024 Riccardo Harris [facility] [place] [address] [place] [place] [address] 01/12/2024 Riccardo Harris [facility] [place] [address] [place] [place] [address] 05/07/2024 Riccardo Harris Chronic pain syndrom e G89.4 [facility] [place] [address] [place] [place] [address] 06/11/2024 Riccardo Harris [facility] [place] [address] [place] [place] [address] 06/14/2024 Riccardo Harris Lumbosacral spondylo sis with radiculopathy M47.27 [facility] [place] [address] [place] [address] 08/09/2024 Riccardo Harris Lumbosacral spondylo sis with radiculopathy M47.27 [facility] [address] [place] [address] 08/17/2024 Riccardo Harris [facility] [place] [address] [place] [place] [address] 09/28/2024 Riccardo Harris Lumbosacral spondylo sis with radiculopathy M47.27 [facility] [place] [address] [place] [place] [address] 10/09/2024 Riccardo Harris Lumbosacral spondylo sis with radiculopathy M47.27 [facility] [place] [address] [facility] [place] [address] 10/09/2024 Riccardo Harris Assessments Encounter Date Diagnosis (ICD Code) Assessment Notes Treatment Notes Treatment Clinical Notes Section Notes 01/25/2024 Chronic pain syndrome (ICD-10 - G89.4) I had a nice visit with the patient today regarding his chronic pain issues. He feels like his shoulder is finally healing upa after his surgery and he is noticing his lumbar radicular symptoms more now. We discussed options and he would like to repeat his lumbar epidural steroid injection to see if he can get some improvement with that. We will continue his medications unchanged but hopefully we will get some improvement so we can start cutting back on his medications. We will see him back after the injection and reevaluate. Schedule repeat LESI 01/25/2024 Vertebrogenic low back pain (ICD-10 - M54.51) 02/21/2024 Lumbosacral spondylosis with radiculopathy (ICD-10 - M47.27) 03/14/2024 Chronic pain syndrome (ICD-10 - G89.4) I had a nice visit with the patient today regarding his chronic pain issues. It looks like we can finally schedule his repeat lumbar epidural steroid injection so we will get that going as soon as we can. We did review his last drug screen and PDMP and he had previously filled that prescriptions from Dr. Spaulding after his shoulder surgery but is no longer filling those and understands that he cannot fill those again. We will continue his medications unchanged for now, see him back after the epidural, and proceed accordingly. Schedule LESI 03/14/2024 Vertebrogenic low back pain (ICD-10 - M54.51) 05/07/2024 Chronic pain syndrome (ICD-10 - G89.4) 05/17/2024 Lumbosacral spondylosis with radiculopathy (ICD-10 - M47.27) 06/14/2024 Chronic pain syndrome (ICD-10 - G89.4) I had a nice discussion with the patient today regarding his chronic pain complaints. He is status post LESI which he unfortunately states did not help his pain at all. 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 He states his lower back pain has been pretty bad lately it occasionally goes down his lower extremities but sounds like it mainly stays in his lower back. I did review his previous MRI from 2022 and it does show facet arthropathy. I did discuss with him medial branch blocks and rhizotomies today which he may be interested in. However, it has been a couple of years since we have done any updated advanced imaging so the patient would like to proceed with an updated lumbar MRI. I did discuss physical therapy with him but the patient states his insurance will not cover this. He denies any other changes in his health since we last seen him or any untoward side effects of the medication. He will return to clinic in 2 months to monitor for treatment effectiveness and compliance. The patient continues with chronic pain requiring [...] effects are noted. Last UDS and [employer] reviewed today. Patient is advised that best long-term goals include increased activity, core strengthening, proper weight management, coping strategies, avoidance of painful triggers, and targeted interventional therapy. We will see the patient for routine follow up in accordance with all clinic policies. We did remind patient today of current guidelines to decrease opioid when possible. We will continue to stress nonopioid treatment. RECOMMEND URINE TESTING TODAY Urine drug screening will be performed today to monitor compliance with opioid therapy or to serve as a baseline screen for a patient who may be a candidate for opioid therapy in the future, pending UDS results. We will monitor with in-office testing (rapid testing) today and review the results prior to dispensing prescription. All positive results will be sent for quantitative analysis to ensure accuracy and quantify amounts. Any expected positive results that return negative will also be sent for quantitative analysis. Any questionable read or any medication we cannot test for in the office confidently will be sent for quantitative analysis, as well. Patient has been made aware of this policy and agrees to abide by our urine testing policy. RECOMMEND MRI LUMBAR SPINE MRI of the lumbar spine is being requested to further evaluate the patient's persistent pain, as well as the more worrisome neurologic symptoms. MRI is not typically needed prior to initiating treatment unless there is a rapid change in condition or a deterioration in neurologic status. Findings from this study will be incorporated, in conjunction with objective findings, into the decision process of formulating a treatment plan for this patient. 06/14/2024 Vertebrogenic low back pain (ICD-10 - M54.51) 06/14/2024 Lumbosacral spondylosis with radiculopathy (ICD-10 - M47.27) 08/09/2024 Chronic pain syndrome (ICD-10 - G89.4) I had a nice discussion with the patient today regarding his chronic pain complaints. He continues with a lot of lower back pain as well as radicular symptoms along with multiple joint pain. He has tried an LESI but did not feel it helped his pain at all. We discussed at his last visit and discussed again today obtaining some updated advanced imaging. He did not hear anything regarding this so we will check on this for him today. Also reviewed his last MRI with him which did show some facet arthropathy. We have also discussed with him medial branch blocks and rhizotomies. However, since the patient's pain seems to have worsened we will obtain a new MRI prior to proceeding with any more interventional procedures. He feels his medication is working reasonably well so we will continue that at present level. He will return to clinic in 2 months to monitor for treatment effectiveness and compliance. 08/09/2024 Primary osteoarthritis, right shoulder (ICD-10 - M19.011) 08/09/2024 Lumbosacral spondylosis with radiculopathy (ICD-10 - M47.27) 09/28/2024 Chronic pain syndrome (ICD-10 - G89.4) [...] and provider understand and agree that, per [facility] LCD, medial branch blocks will be performed [...] effects are noted. Last UDS and [employer] reviewed today. Patient is advised that best [...] shoulder (ICD-10 - M19.011) 09/28/2024 Lumbosacral spondylosis with radiculopathy (ICD-10 - M47.27) 10/09/2024 Lumbosacral spondylosis with radiculopathy (ICD-10 - M47.27) 10/23/2024 Lumbosacral spondylosis (ICD-10 - M47.817) 09/28/2024 Lumbosacral spondylosis (ICD-10 - M47.817) 08/09/2024 Other spondylosis with radiculopathy, lumbosacral region (ICD-10 - M47.27) 06/14/2024 Arthrosis of right acromioclavicular joint (ICD-10 - M19.011) 03/14/2024 Degeneration of intervertebral disc of lumbar region with discogenic back pain and lower extremity pain (ICD-10 - M51.362) 01/25/2024 Degeneration of intervertebral disc of lumbar region with discogenic back pain and lower extremity pain (ICD-10 - M51.362) 01/25/2024 Lumbosacral spondylosis with radiculopathy (ICD-10 - M47.27) 03/14/2024 Lumbosacral spondylosis with radiculopathy (ICD-10 - M47.27) 06/14/2024 Degeneration of intervertebral disc of lumbar region with discogenic back pain and lower extremity pain (ICD-10 - M51.362) 08/09/2024 Other intervertebral disc degeneration, lumbar region (ICD-10 - M51.36) 09/28/2024 Other spondylosis with radiculopathy, lumbosacral region (ICD-10 - M47.27) 09/28/2024 Lateral epicondylitis, unspecified elbow (ICD-10 - M77.10) 08/09/2024 Lateral epicondylitis, unspecified elbow (ICD-10 - M77.10) 06/14/2024 Lumbosacral spondylosis with radiculopathy (ICD-10 - M47.27) 03/14/2024 Spinal stenosis of lumbar region, unspecified whether neurogenic claudication present (ICD-10 - M48.061) 01/25/2024 Spinal stenosis of lumbar region, unspecified whether neurogenic claudication present (ICD-10 - M48.061) 01/25/2024 Pain in right shoulder (ICD-10 - M25.511) 03/14/2024 Pain in right shoulder (ICD-10 - M25.511) 06/14/2024 Spinal stenosis of lumbar region, unspecified whether neurogenic claudication present (ICD-10 - M48.061) 08/09/2024 Unspecified abnormalities of gait and mobility (ICD-10 - R26.9) 09/28/2024 Unspecified abnormalities of gait and mobility (ICD-10 - R26.9) 09/28/2024 Pain in right shoulder (ICD-10 - M25.511) 08/09/2024 Pain in right shoulder (ICD-10 - M25.511) 06/14/2024 Pain in right shoulder (ICD-10 - M25.511) 03/14/2024 Arthrosis of right acromioclavicular joint (ICD-10 - M19.011) 01/25/2024 Arthrosis of right acromioclavicular joint (ICD-10 - M19.011) 01/25/2024 Lateral epicondylitis, unspecified laterality (ICD-10 - M77.10) 03/14/2024 Lateral epicondylitis, unspecified laterality (ICD-10 - M77.10) 06/14/2024 Lateral epicondylitis, unspecified laterality (ICD-10 - M77.10) 08/09/2024 Spinal stenosis, lumbar region without neurogenic claudication (ICD-10 - M48.061) 09/28/2024 Spinal stenosis, lumbar region without neurogenic claudication (ICD-10 - M48.061) 09/28/2024 Vertebrogenic low back pain (ICD-10 - M54.51) 08/09/2024 Vertebrogenic low back pain (ICD-10 - M54.51) 06/14/2024 Abnormality of gait and mobility (ICD-10 - R26.9) 03/14/2024 Abnormality of gait and mobility (ICD-10 - R26.9) 01/25/2024 Abnormality of gait and mobility (ICD-10 - R26.9) 01/25/2024 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 (ICD-10 - Z79.891) 03/14/2024 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 (ICD-10 - Z79.891) 06/14/2024 senior care prescription opiate use (ICD-10 - Z79.891) 08/09/2024 Tobacco use (ICD-10 - Z72.0) 09/28/2024 Tobacco use (ICD-10 - Z72.0) 09/28/2024 ocean transportation 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 (current) use of opiate analgesic (ICD-10 - Z79.891) 08/09/2024 senior care (current) use of opiate analgesic (ICD-10 - Z79.891) RECOMMEND URINE TESTING TODAY Urine drug screening will be performed today to monitor compliance with opioid therapy or to serve as a baseline screen for a patient who may be a candidate for opioid therapy in the future, pending UDS results. We will monitor with in-office testing (rapid testing) today and review the results prior to dispensing prescription. All positive results will be sent for quantitative analysis to ensure accuracy and quantify amounts. Any expected positive results that return negative will also be sent for quantitative analysis. Any questionable read or any medication we cannot test for in the office confidently will be sent for quantitative analysis, as well. Patient has been made aware of this policy and agrees to abide by our urine testing policy. 09/28/2024 Other intervertebral disc degeneration, lumbar region (ICD-10 - M51.36) 01/25/2024 Other Enrique Posadas am scribing for Riccardo Harris. IRiccardo, personally performed the services described in this documentation , as scribed by Enrique Souza, and it is both accurate and complete. 03/14/2024 Other Enrique Posadas am scribing for Dr. Riccardo Harris. I, Dr. Riccardo Harris, personally performed the services described in this documentation , as scribed by Enrique Souza, and it is both accurate and complete. Plan Of Treatment Future Test Test Name Order Date Facet Inj. / MBB Lumbar/Sacral, 2 levels - 89612, 25400 10/04/2024 Next Appt Details Provider Name:Riccardo Harris, 11/15/2024 08:10:00 AM, [address] [facility] [place], [address], Insurance Providers Payer Name Payer Address Payer Phone Subscriber Number Group Number Insured Name Patient Relationship to Insured Coverage Start Date Coverage End Date [facility] Health Plan Medicaid David [address] [place] [address] [id number] Javier Greene Self - patient is the insured 3
[2024-10-31 19:06] VITALS: BP 155/82; PULSE 73; RESP 16; TEMP 36.7; O2SAT 99; BMI 25.0
--- NOTE | 2024-10-31 19:26 | W.ED.BACK ---
HPI - Back Pain/Injury General: Chief Complaint: Back Pain/Injury Stated Complaint: back pain Time Seen by Provider: 10/31/24 19:08 History of Present Illness: Patient presents with worsening low back pain. He has chronic low back pain but has been doing a bunch of heavy lifting. He has gone through all of his pain meds. He was prescribed 120 on the of last month for the he is to finish them up over a week early. No saddle numbness, no urinary retention or incontinence, no focal motor deficit, no sensory deficit. no recent fever. no cough. no shortness of breath. no chest pain. no abdominal pain. no nausea or vomiting. no dysuria. no altered mental status. no edema. Related Data Home Medications ?Medication ?Instructions ?Recorded ?Confirmed gabapentin 300 mg capsule 300 mg PO DAILY 06/23/23 04/10/24 Previous Rx's ?Medication ?Instructions ?Recorded hydrocodone 10 mg-acetaminophen 1 tab PO Q4H PRN Pain 7 days #42 09/28/23 325 mg tablet tabs ibuprofen 600 mg tablet 600 mg PO Q8H PRN pain #20 tabs 09/24/24 methocarbamol 500 mg tablet 1,000 mg (2 x 500 mg) PO Q8H #30 09/24/24 tabs methylprednisolone 4 mg tablets in See Rx Instructions PO .COMPLEX 09/24/24 a dose pack (Medrol (Denis)) #21 ea cyclobenzaprine 10 mg tablet 10 mg PO Q8H PRN muscle spasm #20 10/31/24 tabs dexamethasone 6 mg tablet 6 mg PO DAILY 5 days #5 tabs 10/31/24 diclofenac sodium 50 mg 50 mg PO BID PRN pain #14 tabs 10/31/24 tablet,delayed release Allergies Allergy/AdvReac Type Severity Reaction Status Date / Time No Known Allergies Allergy Verified 10/31/24 19:10 Review of Systems Narrative: Constitutional symptoms: Negative except as documented in HPI. Skin symptoms: Negative except as documented in HPI. Eye symptoms: Negative except as documented in HPI. ENMT symptoms: Negative except as documented in HPI. Respiratory symptoms: Negative except as documented in HPI. Cardiovascular symptoms: Negative except as documented in HPI. Gastrointestinal symptoms: Negative except as documented in HPI. Genitourinary symptoms: Negative except as documented in HPI. Musculoskeletal symptoms: Negative except as documented in HPI. Neurologic symptoms: Negative except as documented in HPI. Psychiatric symptoms: Negative except as documented in HPI. Endocrine symptoms: Negative except as documented in HPI. PFSH ED PFSH: Social History Smoking and tobacco/nicotine status: current every day tobacco/nicotine user Alcohol intake: never Substance/Drug Use: never Physical Exam Narrative: EXAM NARRATIVE: General: Alert, no acute distress. Head: Normocephalic Neck: Trachea midline Eye: Extraocular movements are intact. Ears, nose, mouth and throat: Oral mucosa moist Respiratory: Respirations are non-labored Musculoskeletal: Normal ROM Back: no step off, no focal tenderness, some paraspinal muscle tenderness Neurological: Alert and oriented, No focal neurological deficit observed. Psychiatric: Cooperative, appropriate mood & affect. Course Vital Signs: Vital signs: Vital Signs Temperature 98.0 F 10/31/24 19:06 Pulse Rate 73 10/31/24 19:06 Respiratory Rate 16 10/31/24 19:06 Blood Pressure 155/82 10/31/24 19:06 Pulse Oximetry 99 10/31/24 19:06 Oxygen Delivery Me thod Room Air 10/31/24 19:06 MDM - Back Pain/Injury Medical Decision Making I discussed that writing any more narcotics may avoid his pain contract and he would not be able to get any more at all. Placed him on Flexeril steroids and anti-inflammatories for a few days Assessment and plan: Chronic low back pain with acute exacerbation ?[address] [place] here. I am Norflex and Toradol. - Discharged home - Discussed plan with patient. Answered any questions. - Evaluation and treatment of this problem were appropriate in the emergency setting. No radiology studies performed this visit Discharge Plan Discharge Patient Disposition: Home Clinical Impression: Strain of lumbar region, Chronic back pain Condition: Stable Prescriptions: New cyclobenzaprine 10 mg tablet 10 mg PO Q8H PRN (Reason: muscle spasm) Qty: 20 0RF dexamethasone 6 mg tablet 6 mg PO DAILY 5 Days Qty: 5 0RF diclofenac sodium 50 mg tablet,delayed release (DR/EC) 50 mg PO BID PRN (Reason: pain) Qty: 14 0RF No Action gabapentin 300 mg capsule 300 mg PO DAILY hydrocodone-acetaminophen 10-325 mg tablet 1 tab PO Q4H PRN (Reason: Pain) 7 Days Qty: 42 0RF methocarbamol 500 mg tablet 1,000 mg PO Q8H Qty: 30 0RF methylprednisolone [Medrol (Denis)] 4 mg tablets,dose pack See Rx Instructions .ROUTE .COMPLEX Qty: 21 0RF Rx Instructions: orally per package directions ibuprofen 600 mg tablet 600 mg PO Q8H PRN (Reason: pain) Qty: 20 0RF Discharge Orders: Discharge ED (Routine); Ordered 10/31/24 Ordered By: Nola Zhang Referrals: Remberto Ford MD [Primary Care Provider, [facility]] Discharge Diet: Usual diet Discharge Activity: Increase activity as tolerated Patient Instructions: Low Back Strain (ED), Opioid Safety, Pain Management, Patient Portal & Celi Instructions Activity Restrictions/Additional Instructions: Thank you for choosing [facility] for your healthcare needs today. You have been screened and evaluated and felt safe for discharge. Health conditions do change or evolve sometimes and as such it is important that you follow up with your Primary Doctor to be re checked, 3-5 days is a general good time frame for follow up. You are always welcome to return to the ED for re assessment if your symptoms are worsening or you have new concerns Print Language: Greenlandic Coding Level of Care Code ED Keel Press Operator for Will Lopez
[2024-10-31] MEDS: orphenadrine 30 mg/mL Inj 2 mL 60 MG IM (19:37)
[2024-10-31] MEDS: HYDROcodone-acetaminophen 10-325 mg Tablet 1 TAB PO (19:38)
== END 2024-10-31 19:43 | disposition home or self-care (01) ==
PROVIDERS: Emergency Provider Emergency Medicine; PCP Family Medicine
DX: S39.012A Strain of muscle, fascia and tendon of lower back, initial encounter (principal); X50.9XXA Other and unspecified overexertion or strenuous movements or postures, initial encounter; X50.0XXA Overexertion from strenuous movement or load, initial encounter
CPT/HCPCS: 96372; 99284; J1885; J2360; J9999